=== PATIENT | female | born 1955 | race Caucasian/White ===

== ENCOUNTER 2017-06-16 13:30 | Outpatient (RCR) | payer OTHER, SELFPAY | END 2017-06-16 23:59 | LOC: PT.CARL 13:30 | PROVIDERS: Referring Provider Internal Medicine Adolescent Medicine; Visit Provider Internal Medicine Adolescent Medicine | DX: M25.552 Pain in left hip (principal) | CPT/HCPCS: 97110; 97162 ==

== ENCOUNTER → 2017-06-16 | Outpatient (CLI) | payer OTHER, SELFPAY | PROVIDERS: Visit Provider Surgery | DX: K26.4 Chronic or unspecified duodenal ulcer with hemorrhage (principal); Z01.812 Encounter for preprocedural laboratory examination | CPT/HCPCS: 36415; 85014; 85018; 93005 ==

== ENCOUNTER 2017-06-24 10:41 | Day surgery (SDC) | payer OTHER, SELFPAY ==
[2017-06-24] VITALS (11 sets, daily range): BP systolic 107–128; BP diastolic 36–76; PULSE 57–78; RESP 16–20; TEMP 36.4–36.6; O2SAT 93–100; BMI 37.5
--- NOTE | 2017-06-24 12:45 | HMH.SCOPE ---
- Procedure: Date: 06/24/17 Procedure Performed:: Esophagogastroduodenoscopy with biopsy Indications:: This is a 61-year-old female who was diagnosed with a complex duodenal ulcer with hemorrhage in March 2017. She remains on proton pump inhibition, as well as Carafate and has been without symptoms. Performing Provider:: Edward Michael MD Referring Provider:: Dr. Antunez Sedation:: Ideation with 11 mg of Versed and 200 mcg of fentanyl Procedure:: After informed consent was obtained, the patient was taken to the endoscopy suite. IV sedation ensued after she was transferred to the left lateral decubitus position. The gastroscope was advanced. The stomach was entered. Patchy gastritis was noted. An antral biopsy was obtained. The pylorus was intubated. The site of prior complex duodenal ulcer was essentially healed with some scarring noted. A biopsy was obtained and the gastroscope was carefully removed. Findings:: Ulcer essentially healed Specimens:: Antral biopsy Biopsy of duodenal ulcer site Recommendations:: Continue current medical therapy Follow-up in 1-2 weeks with regard to pathology Complications:: No immediate Estimated blood obtained (mL): 1
== END 2017-06-24 13:50 | disposition home or self-care (01) ==
PROVIDERS: Family Provider Internal Medicine Adolescent Medicine; PCP Internal Medicine Adolescent Medicine; Visit Provider Surgery
PROC: 0DJ08ZZ Inspection of Upper Intestinal Tract, Via Natural or Artificial Opening Endoscopic (ICD-10-PCS; CPT 43235; principal; 2017-06-24 11:30)
DX: Z09 Encounter for follow-up examination after completed treatment for conditions other than malignant neoplasm (principal); Z87.11 Personal history of peptic ulcer disease; K29.70 Gastritis, unspecified, without bleeding
CPT/HCPCS: 43239; 99152

== ENCOUNTER 2017-06-30 14:30 | Outpatient (RCR) | payer OTHER, SELFPAY | END 2017-06-30 23:59 | LOC: PT 14:30 | PROVIDERS: Family Provider Internal Medicine Adolescent Medicine; Visit Provider Internal Medicine Adolescent Medicine | DX: M25.552 Pain in left hip (principal) | CPT/HCPCS: 97110 ==

== ENCOUNTER → 2018-07-27 08:24 | Outpatient (CLI) | payer MEDICARE, OTHER, SELFPAY ==
[2018-07-27 13:59] LABS: Basophils % 0.6 % (0.1-2.0); Eosinophils # 0.2 K/mm3 (0.0-0.4); Eosinophils % 3.1 % (0.1-12.0); Hematocrit 49.7 % (37.0-47.0); Hemoglobin 16.4 g/dL (12.2-16.2); Lymphocytes # 2.1 K/mm3 (0.7-4.5); Lymphocytes % 30.6 % (10-50); Mean Corpuscular HGB Conc 33.1 g/dL (31.8-35.4); Mean Corpuscular Hemoglobin 29.3 pg (27.0-31.2); Mean Corpuscular Volume 88.7 fl (81-99); Mean Platelet Volume 10.3 fl (7.4-10.4); Monocytes # 0.4 K/mm3 (0.1-1.0); Neutrophils % 59.6 % (37.0-80.0); Platelet Count 307 K/mm3 (142-424); Red Blood Count 5.61 M/mm3 (4.20-5.40); Red Cell Distribution Width 15.1 % (11.5-17.5); White Blood Count 6.8 K/mm3 (4.8-10.8)
[2018-07-27 14:53] LABS: Alanine Aminotransferase 29 U/L (12-78); Albumin Level 3.8 gm/dL (3.4-5.0); Albumin/Globulin Ratio 0.8 (1.1-1.8); Alkaline Phosphatase 62 U/L (46-116); Anion Gap 16.3 mEq/L (5-15); Aspartate Amino Transferase 19 U/L (15-37); Bilirubin,Total 0.7 mg/dL (0.2-1.0); Blood Urea Nitrogen 15 mg/dL (7-18); Calcium 9.5 mg/dL (8.5-10.1); Carbon Dioxide 26 mmol/L (21.0-32.0); Chloride 102 mmol/L (98-107); Chol/HDL Ratio 4.2 (1-3.5); Cholesterol 188 mg/dL (140-200); Creatinine,Serum 0.67 mg/dL (0.55-1.02); Estimated Glomerular Filt Rate 88 ml/min (>60); Free Thyroxine Index 2.2 ug/dL (5.93-13.13); GFR (African American) 107 ML/MIN (>60); Globulin 4.5 gm/dl (1.3-3.2); Glucose 134 mg/dL (74-106); HDL Cholesterol 45 mg/dL (29-89); LDL Cholesterol 116 mg/dL (0-130); Potassium 4.3 mmoL/L (3.5-5.1); Sodium 140 mmol/L (136-145); T4 (Thyroxine) 7.7 ug/dl (4.7-13.3); Thyroid Stimulating Hormone 7.62 uIU/ml (0.358-3.740); Total Protein,Serum 8.3 gm/dL (6.4-8.2); Triglycerides 135 mg/dL (30-200); Triiodothryronine (T3) Uptake 29 % (31-39); VLDL Cholesterol 27 mg/dL (0-40)
[2018-07-28 09:32] LABS: Vitamin D 25 Hydroxy 26.1 ng/mL (30.0-100.0)
[2018-07-28 11:52] LABS: Vitamin B12 456 pg/mL (232-1245)
== END ==
PROVIDERS: PCP Internal Medicine Adolescent Medicine; Visit Provider Internal Medicine Adolescent Medicine
DX: I48.0 Paroxysmal atrial fibrillation (principal); Z79.899 Other long term (current) drug therapy
CPT/HCPCS: 36415; 80053; 80061; 82607; 82652; 84436; 84443; 84479; 85025

== ENCOUNTER 2018-08-15 11:00 | Outpatient (RCR) | payer MEDICARE, OTHER, SELFPAY ==
--- NOTE | 2018-08-01 14:53 | HMH.OTOPEV ---
OT Inpatient Evaluation Rehab OT Outpatient Eval Start: 08/01/18 14:35 Freq: Status: Active Protocol: Document 08/01/18 14:36 TFRY (Rec: 08/01/18 14:53 TFRY [id number]) Electronically Signed By Valencia White, OT 08/01/18 14:36 Outpatient Therapy Subjective History Subjective History This is a 63 year old right handed female referred to occupational therapy for bilateral carpal tunnel syndrome. Patient reports that this has been ongoing for years. Chief Complaint Pain Symptom Type Burning Tingling Symptoms Relieved By Brace/Support Symptoms Aggravated By Physical Activity Prior Functional Limitations None Current Functional Limitations None Symptom Description Intermittent Level of pain today (0-10) 2 Pain scale - at its best (0-10) 0 Pain scale - at its worst (0-10) 7 Wrist/Hand Eval Wrist Range of Motion Bilateral Wrist ROM Reason Not Measured Within Functional Limits Wrist Manual Muscle Testing Right Wrist Extension Strength Grade 5 Normal Wrist Flexion Strength Grade 5 Normal Wrist Radial Deviation Strength Grade 5 Normal Wrist Ulnar Deviation Strength Grade 5 Normal Left Wrist Extension Strength Grade 5 Normal Wrist Flexion Strength Grade 5 Normal Wrist Radial Deviation Strength Grade 5 Normal Wrist Ulnar Deviation Strength Grade 5 Normal Appliance Installer/Pinch Strength Right Appliance Installer Strength Measurement (lbs) 74 Palmar Pinch (3-point) Ability Normal Performance Palmar Pinch (3-point) Strength 4 Measurement (lbs) Tip Pinch (2-point) Ability Normal Performance Tip Pinch (2-point) Strength Measurement 0 (lbs) Lateral Pinch Ability Normal Performance Lateral Pinch Strength Measurement (lbs) 10 Left Appliance Installer Strength Measurement (lbs) 50 Palmar Pinch (3-point) Ability Normal Performance Palmar Pinch (3-point) Strength 5 Measurement (lbs) Tip Pinch (2-point) Ability Normal Performance Tip Pinch (2-point) Strength Measurement 1 (lbs) Lateral Pinch Ability Normal Performance Lateral Pinch Strength Measurement (lbs) 8 Special Tests Wrist Phalen Test Positive Left Positive Right Wrist Tinel Test Negative Left Negative Right OT Outpatient Assessment Impairments Problems/Impairments Impaired Strength Subjective C/O Pain Prognosis Rehab Potential Fair Clinical Impression Consistent with Diagnosis
== END 2018-09-07 13:01 | disposition home or self-care (01) ==
LOC: OT 11:00
PROVIDERS: Visit Provider Internal Medicine Adolescent Medicine
DX: G56.03 Carpal tunnel syndrome, bilateral upper limbs (principal)
CPT/HCPCS: 97033; 97110; 97165

== ENCOUNTER → 2018-10-10 08:06 | Outpatient (CLI) | payer MEDICARE, OTHER, SELFPAY ==
[2018-10-10 15:29] LABS: Alanine Aminotransferase 32 U/L (12-78); Albumin Level 3.8 gm/dL (3.4-5.0); Alkaline Phosphatase 53 U/L (46-116); Anion Gap 13.3 mEq/L (5-15); Aspartate Amino Transferase 17 U/L (15-37); Bilirubin,Total 0.6 mg/dL (0.2-1.0); Blood Urea Nitrogen 6 mg/dL (7-18); Carbon Dioxide 27 mmol/L (21.0-32.0); Chloride 104 mmol/L (98-107); Chol/HDL Ratio 4.8 (1-3.5); Cholesterol 177 mg/dL (140-200); Creatinine,Serum 0.62 mg/dL (0.55-1.02); Estimated Glomerular Filt Rate 97 ml/min (>60); GFR (African American) 117 ML/MIN (>60); Glucose 115 mg/dL (74-106); HDL Cholesterol 37 mg/dL (29-89); LDL Cholesterol 105 mg/dL (0-130); Potassium 4.3 mmoL/L (3.5-5.1); Sodium 140 mmol/L (136-145); Total Protein,Serum 7.8 gm/dL (6.4-8.2); Triglycerides 175 mg/dL (30-200); VLDL Cholesterol 35 mg/dL (0-40)
== END ==
PROVIDERS: PCP Internal Medicine Adolescent Medicine; Visit Provider Nurse Practitioner Family
DX: E78.2 Mixed hyperlipidemia (principal)
CPT/HCPCS: 36415; 80053; 80061

== ENCOUNTER → 2019-03-07 10:01 | Outpatient (CLI) | payer MEDICARE, OTHER, SELFPAY ==
[2019-03-07 11:41] LABS: Blood Urea Nitrogen 16 mg/dL (7-18); Creatinine,Serum 0.63 mg/dL (0.55-1.02); Estimated Glomerular Filt Rate 95 ml/min (>60); GFR (African American) 115 ML/MIN (>60)
--- NOTE | 2019-03-07 11:50 | CT_ITS ---
PROCEDURE: CT ABDOMEN PELVIS WO/W CON CLINICAL INDICATION: ABD SWELLING,LT LOWER QUAD Left-sided abdominal pain and swelling COMPARISON: No exams were available for comparison TECHNIQUE: IV Contrast: 75ML OPTIRAY 350 Oral Contrast none Axial images obtained with sagittal and coronal reformats. All CT scans at the facility use one or more dose reduction, viz: automated exposure control, ma/kV adjustment per patient size (including targeted exams where dose is matched to indication, i.e. head), or iterative reconstruction technique. Images are obtained without and with contrast FINDINGS: There are mild atelectatic or fibrotic changes in the lung bases. The coronary artery calcification noted. There are multiple gallstones within a mildly distended gallbladder. There is a small area of decreased attenuation within the right hepatic lobe adjacent to the gallbladder somewhat ill-defined at approximately 2 cm. This is of questionable etiology and could be due to some focal fatty infiltration. There is some minimal nodularity of the anterior gallbladder wall. No biliary dilatation. The spleen, adrenal glands, and pancreas have an unremarkable appearance. No renal or ureteral calculi. There are small parapelvic left renal cyst. There is a tiny umbilical hernia containing fat. No intestinal obstruction or free air. No evidence of appendicitis. There are post hysterectomy changes with artifact from a right hip prosthesis obscuring fine detail in the pelvis. There diverticulosis of the descending and sigmoid colon but no evidence of diverticulitis. No acute bony anomaly. IMPRESSION: 1. Multiple gallstones with mildly distended gallbladder and minimal nodularity of the anterior gallbladder wall. Consider gallbladder ultrasound for further evaluation. 2. Colonic diverticulosis. No evidence of diverticulitis. 3. Other nonacute findings as described above Dictated by: Tom Carter MD 03/08/2019 07:19 Electronically signed by Tom Carter MD in [facility] 03/08/2019 07:19
== END ==
PROVIDERS: PCP Internal Medicine Adolescent Medicine; Visit Provider Internal Medicine Adolescent Medicine
DX: R19.04 Left lower quadrant abdominal swelling, mass and lump (principal)
CPT/HCPCS: 36415; 74178; 82565; 84520; Q9967

== ENCOUNTER → 2019-03-21 10:51 | Outpatient (POV) | payer MEDICARE, OTHER, SELFPAY | PROVIDERS: Visit Provider Dermatology | DX: Z00.00 Encounter for general adult medical examination without abnormal findings (principal) ==

== ENCOUNTER → 2019-04-03 08:56 | Outpatient (CLI) | payer MEDICARE, OTHER, SELFPAY ==
--- NOTE | 2019-04-03 09:00 | US_ITS ---
PROCEDURE: US GALLBLADDER CLINICAL INDICATION: gallstones Abdominal pain and swelling, abnormal CT scan COMPARISON: CT ABDOMEN PELVIS WO/W CON from 03/07/2019 FINDINGS: Pancreas: Unremarkable/Not well seen Liver: Unremarkable. There is appropriate direction of blood flow within a non dilated portal vein. Right kidney: Unremarkable appearing. No hydronephrosis. Gallbladder: There are multiple gallstones present. No gallbladder wall thickening, pericholecystic fluid, or biliary dilatation is evident. IMPRESSION: Cholelithiasis Dictated by: Tom Carter MD 04/03/2019 12:14 Electronically signed by Tom Carter MD in [facility] 04/03/2019 12:14
== END ==
PROVIDERS: PCP Internal Medicine Adolescent Medicine; Visit Provider Surgery
DX: K82.9 Disease of gallbladder, unspecified (principal)
CPT/HCPCS: 76705

== ENCOUNTER → 2019-08-01 14:32 | Outpatient (CLI) | payer MEDICARE, OTHER, SELFPAY ==
--- NOTE | 2019-08-01 14:44 | XR_ITS ---
PROCEDURE: XR HUMERUS RT CLINICAL INDICATION: RT ARM PAIN COMPARISON: No exams were available for comparison FINDINGS: No fracture or dislocation. No lytic or blastic change. There is normal mineralization. The joint spaces are well-preserved. No significant degenerative/arthritic changes. No erosive changes evident. Other findings:None. IMPRESSION: No acute findings. Dictated by: Tom Carter MD 08/01/2019 15:17 Electronically signed by Tom Carter MD in [facility] 08/01/2019 15:17
--- NOTE | 2019-08-01 14:45 | XR_ITS ---
PROCEDURE: XR SHOULDER RT MIN 2V CLINICAL INDICATION: RT ARM PAIN Right shoulder pain COMPARISON: No exams were available for comparison FINDINGS: Osteoarthritic changes are present at the acromioclavicular joint. There is mild subacromial stenosis. No fracture or dislocation. IMPRESSION: Mild acromioclavicular arthropathy Dictated by: Tom Carter MD 08/01/2019 15:16 Electronically signed by Tom Carter MD in [facility] 08/01/2019 15:16
== END ==
PROVIDERS: PCP Internal Medicine Adolescent Medicine; Visit Provider Internal Medicine Adolescent Medicine
DX: M79.601 Pain in right arm (principal)
CPT/HCPCS: 73030; 73060

== ENCOUNTER → 2019-08-15 08:49 | Outpatient (CLI) | payer MEDICARE, OTHER, SELFPAY ==
[2019-08-15 13:30] LABS: Basophils # 0.1 K/mm3 (0-0.2); Basophils % 1.2 % (0.1-2.0); Eosinophils # 0.3 K/mm3 (0.0-0.4); Eosinophils % 3.8 % (0.1-12.0); Hematocrit 44.8 % (37.0-47.0); Hemoglobin 14.6 g/dL (12.2-16.2); Lymphocytes # 2.2 K/mm3 (0.7-4.5); Lymphocytes % 27.9 % (10-50); Mean Corpuscular HGB Conc 32.6 g/dL (31.8-35.4); Mean Corpuscular Volume 92.1 fl (81-99); Monocytes # 0.4 K/mm3 (0.1-1.0); Monocytes % 5.1 % (1.7-9.3); Neutrophils # 4.9 K/mm3 (1.8-7.8); Platelet Count 295 K/mm3 (142-424); Red Blood Count 4.87 M/mm3 (4.20-5.40); White Blood Count 7.8 K/mm3 (4.8-10.8)
[2019-08-15 13:47] LABS: Hemoglobin A1C 5.8 % (4.0-6.0)
[2019-08-15 13:51] LABS: Alanine Aminotransferase 25 U/L (12-78); Albumin Level 4.1 g/dl (3.5-5.0); Albumin/Globulin Ratio 1.2 (1.1-1.8); Alkaline Phosphatase 66 U/L (38-126); Anion Gap 10.3 mEq/L (5-15); Aspartate Amino Transferase 26 U/L (14-36); Bilirubin,Total 0.3 mg/dl (0.2-1.3); Blood Urea Nitrogen 16 mg/dl (7-17); Calcium 9.6 mg/dl (8.4-10.2); Carbon Dioxide 28 mmol/L (22.0-30.0); Chloride 102 mmol/L (98-107); Chol/HDL Ratio 4.6 (1-3.5); Cholesterol 180 mg/dl (140-200); Estimated Glomerular Filt Rate 123 ml/min (>60); GFR (African American) 149 ML/MIN (>60); Globulin 3.3 g/dL (1.3-3.2); Glucose 107 mg/dl (74-100); HDL Cholesterol 39 mg/dl (40-60); Potassium 4.3 mmoL/L (3.5-5.1); Sodium 136 mmol/L (136-145); Total Protein,Serum 7.4 g/dl (6.3-8.2); Triglycerides 177 mg/dl (30-150); VLDL Cholesterol 35 mg/dL (0-40)
[2019-08-15 14:01] LABS: Direct LDL Cholesterol 117.23 mg/dL (100-129)
== END ==
PROVIDERS: Visit Provider Internal Medicine Adolescent Medicine
DX: E78.2 Mixed hyperlipidemia (principal); E03.9 Hypothyroidism, unspecified; R73.9 Hyperglycemia, unspecified
CPT/HCPCS: 36415; 80053; 80061; 83036; 84443; 85025

== ENCOUNTER 2020-02-06 11:00 | Outpatient (RCR) | payer MEDICARE, OTHER, SELFPAY | END 2020-02-20 12:16 | disposition home or self-care (01) | LOC: OT 11:00 | PROVIDERS: PCP Internal Medicine Adolescent Medicine; Visit Provider Internal Medicine Adolescent Medicine | DX: M25.511 Pain in right shoulder (principal) | CPT/HCPCS: 97014; 97033; 97035; 97110; 97530; G0283 ==

== ENCOUNTER → 2020-05-01 07:59 | Outpatient (CLI) | payer MEDICARE, OTHER, SELFPAY ==
--- NOTE | 2020-05-01 | CA_ITS ---
APPROVED REPORT Exam: Pharmacologic Technologist: Gisell Price Ht: 5 ft 8 in Wt: 257 lbs BSA: 2.27 m2 HR: 74 bpm BP: 126/67 mmHg Indications: Dyspnea on Exertion, Medical History Medications: Sotalol,,,,, Pantoprazole,,,,, DilTiazem,,,,, Apixaban,,,,, Stress Test Details Test: LEXISCAN HR Resting HR: 88 bpm Max Heart Rate (APMHR): 154 bpm Max HR Achieved: 115 bpm Target HR (85% APMHR): 130 bpm % of APMHR: 74 Recovery HR: 99 bpm BP Resting BP: 126.0/67.0 mmHg Max BP: 152.0/82.0 mmHg Recovery BP: 152.0/82.0 mmHg ECG Clinical Exercise duration: 04:00 min Highest Stage Achieved: Exercise capacity: 1.0 METs Stress ECG Conclusion Resting EKG: Atrial fibrillation, controlled ventricular rate, NS ST-T abnormalities, cannot rule out old septal AK. Symptoms: Brief shortness of air, mild malaise. Arrhythmias/Ectopy: Atrial fibrillation throughout ST-T Changes: Exaggeration of baseline ST-T abnormalities. Conclusion: Non-diagnostic Lexiscan stress. Myoview images reported separately. Electronically signed by : Jose Guadalupe Plasencia, 05/02/2020 11:30:43
--- NOTE | 2020-05-01 08:02 | NM_ITS ---
APPROVED REPORT Exam: Nuclear Stress Test Indication: Chest pain, SOB, Former tobacco use, Family history Patient Location: Outpatient Stress Tech: Gisell Price NM Tech:Kiana Caldreon, ARRT, RT (R)(N) Ht: 5 ft 7 in Wt: 250 lbs Bra Size: 42C HR: 74 bpm BP: 126/67 mmHg BSA: 2.22 m2 BMI: 39.1 History: Chest pain, SOB, Former tobacco use, Family history Procedure: Patient received a 0.4 mg of intravenous Lexiscan, resting heart rate 74 bpm, resting blood pressure 126/67 mmHg, with Lexiscan maximum heart rate achived was 86 bpm which is Less than 85 % of the maximum predicted heart rate and blood pressure was 142/75 mmHg. With Lexiscan, patient denied any complaint of chest pain. Electrocardiogram Resting electrocardiogram showed atrial fibrillation, with Lexiscan there is less than 1.[address] segment depression noted from the baseline EKG. The EKG portion of the Lexiscan is nondiagnostic. Cardiac Stress and Resting SPECT Images: Cardiac Stress and Resting SPECT images were obtained using technetium 99m Myoview 30.4 mCi stress and 9.97 mCi at rest. Gated SPECT for analysis of segmental wall motion and calculation of the ejection fraction also done. Prone images were also obtained. Cardiac stress prone images show uniform myocardial activity without segmental perfusion abnormality, computer derived ejection fraction is 55% with no regional wall motion abnormality, right ventricle is mildly enlarged with normal contractility. Conclusion: 1. The EKG portion of the Lexiscan is nondiagnostic 2. No scintigraphic evidence of reversible ischemia seen, computer derived ejection fraction is 55% with no regional wall motion abnormality, right ventricle is mildly enlarged with normal contractility. 3. Normal Lexiscan Myoview study. Electronically signed by : Jose Guadalupe Plasencia, 05/02/2020 11:34:05
--- NOTE | 2020-05-01 10:22 | HMH.ITSHM ---
Current Home Medications as stated by this patient Lillian Muhammad or territory representative. []DILTIAZEM APIXABAN SOTALOL PANTOPRAZOLE
== END ==
PROVIDERS: PCP Internal Medicine Adolescent Medicine; Visit Provider Internal Medicine Adolescent Medicine
DX: R06.09 Other forms of dyspnea (principal)
CPT/HCPCS: 78452; 93017; A9502; J2785

== ENCOUNTER 2020-06-07 11:10 | Emergency (ER) | payer MEDICARE, OTHER, SELFPAY ==
[2020-06-07 11:15] VITALS: BP 124/61; PULSE 54; RESP 14; TEMP 36.5; O2SAT 99; BMI 39.1
--- NOTE | 2020-06-07 11:26 | HMH.EDUTC ---
[facility] [place] Clinical Impression: Exposure to COVID-19 virus Disposition: Home, Self-Care Condition on Discharge: Good Instructions: Preventing the Spread of Coronavirus Discharge Instructions Referrals: Wally Antunez MD [Primary Care Provider] - Time of Disposition: 11:31 Medical Decision Making - Ricki Inquiry Pt receiving controlled substance: No [facility] [place] - General Stated complaint: Covid test Time Seen by Provider: 06/07/20 11:26 - History of Present Illness Provider Complaint: Patient requesting COVID test. She denies symptoms or exposure. Treatments prior to arrival: none - Related Data Home Medications Medication Instructions Recorded Confirmed Pantoprazole Sodium [Protonix 40mg 40 mg PO DAILY 06/23/17 03/28/19 tablet] Sotalol HCl [Sotalol] 120 mg PO BID 06/23/17 03/28/19 dilTIAZem HCL [Cartia Xt] 240 mg PO DAILY 06/23/17 03/28/19 apixaban 5 mg tablet 5 mg PO BID 07/05/18 03/28/19 Allergies Allergy/AdvReac Type Severity Reaction Status Date / Time No Known Drug Allergies Allergy Unknown -- Verified 03/28/19 13:37 [facility] History - Hepatitis A Screen Attestation statement:: This patient has been screened for Hepatitis A risk factors. I have reviewed the patient's past medical history: Yes Medical History: Reports:: Atrial Fibrillation, Lung Disease, Palpitations Denies:: Diabetes Mellitus Type 1, Diabetes Mellitus Type 2, Internal Pacemaker, Seizures Laterality Cases: Right: Arthroscopy Hip, Total Hip Replacement Other Surgeries: Yes: Diagnostic Lap, Hysterectomy-Total. No: Pacemaker - Social History Smoking Status: Former smoker #Yrs smoked (if former smoker): 20 Alcohol Intake: never Substance Use Type: denies use Occupational Status: employed Family Hx:: Coronary Artery Disease, Heart Attack Comment: Father- of [place] at 68. Mother-Lived to be 99 with Palpitations ROS Obtained: Yes All systems reviewed & no additional complaints Physical Exam - General General appearance: alert, in no apparent distress - Head Head exam: atraumatic, normocephalic, normal inspection - Eye Eye exam: Present: normal appearance, PERRL, EOMI - ENT ENT exam: Present: normal exam, normal oropharynx, mucous membranes moist, TM's normal bilaterally, normal external ear exam - Neck Neck exam: Present: normal inspection, full ROM, trachea midline. Absent: meningismus, lymphadenopathy - Chest Chest inspection: Present: normal inspection, symmetric chest wall rise. Absent: tenderness - Respiratory Respiratory exam: Present: normal lung sounds bilaterally. Absent: respiratory distress - Cardiovascular Cardiovascular exam: Present: regular rate, normal rhythm. Absent: JVD - Abdominal Exam Abdominal exam: Present: soft, normal bowel sounds. Absent: distention, tenderness, guarding - Extremities Exam Extremities exam: Present: normal inspection, full ROM, normal capillary refill. Absent: calf tenderness - Back Exam Back exam: Present: normal inspection. Absent: tenderness - Neurological Exam Neurological exam: Present: alert, oriented X3 - Psychiatric Psychiatric exam: Present: normal affect, normal mood - Skin Skin exam: Present: warm, dry, intact, normal color - Lymphatic Lymphatic Findings: no adenopathy
[2020-06-07 11:28] VITALS: BP 124/61; PULSE 54; RESP 14; TEMP 36.5; O2SAT 99
[2020-06-08 10:48] LABS: Covid-19 Nasal PCR Sendout P&C NEGATIVE
== END 2020-06-07 11:30 | disposition home or self-care (01) ==
PROVIDERS: Emergency Provider Physician Assistant; PCP Internal Medicine Adolescent Medicine
DX: Z20.828 Contact with and (suspected) exposure to other viral communicable diseases (principal); I48.0 Paroxysmal atrial fibrillation; Z87.891 Personal history of nicotine dependence; R00.2 Palpitations; Z96.641 Presence of right artificial hip joint
CPT/HCPCS: G0463; 99201; U0004

== ENCOUNTER 2020-07-29 13:00 | Outpatient (RCR) | payer MEDICARE, OTHER, SELFPAY ==
--- NOTE | 2020-06-24 15:30 | HMH.PTOPEV ---
PT Outpatient Evaluation Rehab PT Outpatient Evaluation Start: 06/24/20 13:36 Freq: Status: Active Protocol: Document 06/24/20 13:36 SIRENAX (Rec: 06/24/20 14:04 [email or web address] [id number]) Electronically Signed By Kasi Murray, DK 06/24/20 13:36 Outpatient Therapy Subjective History Subjective History Pt. is a 64 year old female who presents to Outpatient PT clinic w/ complaints of chronic and constant RLE lateral thigh/ft. numbness/tingling/burning of insidious onset since having my total hip surgery 15 years ago. Pt. also complains of walking w/ a limp and balance deficits. Pt. reports she purchased a rollator and uses it to ambulate longer distances. Pt. denies having recent diagnostic imaging nor injections for current pathology. Pt. reports symptoms worsen w/ stair negotiation, ambulating long distances and standing from a seated position. Pt. notes symptom relief w/ swimming in a heated pool. Pt. 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 Current medications include Cardizem, Sotalol, and Eliquis . PMH includes R RUSS, mini-CVA 2017, Hysterectomy, Cardiomegaly, and A-fib. Chief Complaint Pain,Paresthesia,Weakness Symptom Type Burning,Numbness,Tingling Symptoms Relieved By Heat Symptoms Aggravated By Standing,Twisting,Walking Prior Functional Limitations None Current Functional Limitations Standing,Recreation Activity, Walking,Stairs,Balance Symptom Description Constant and Continuous Level of pain today (0-10) 2 Pain scale - at its best (0-10) 1 Pain scale - at its worst (0-10) 8 Lumbopelvic Eval Posture Thoracic Spine Posture Standing Position Neutral Lumbar Spine Posture Standing Position Neutral Assistive device Assistive Devices None / NA Gait Observation General Gait Pattern Observation Antalgic Gait,Decrease Weight
== END 2020-07-29 14:00 | disposition home or self-care (01) ==
LOC: PT.CARL 13:00
PROVIDERS: PCP Internal Medicine Adolescent Medicine; Visit Provider Internal Medicine Adolescent Medicine
DX: M25.552 Pain in left hip (principal); M46.98 Unspecified inflammatory spondylopathy, sacral and sacrococcygeal region
CPT/HCPCS: 97110; 97140; 97163

== ENCOUNTER → 2020-12-09 09:23 | Outpatient (CLI) | payer MEDICARE, OTHER, SELFPAY ==
--- NOTE | 2020-12-09 09:25 | CA_ITS ---
APPROVED REPORT EXAM: Comprehensive 2D, Doppler, and color-flow Echocardiogram Oil Rig Roughneck: LAYTON Briceño, RVS Ht: 5 ft 6 in Wt: 252lbs BSA: 2.21 HR: 102 bpm BP: 118/72 mmHg Rhythm: Atrial Fibrillation Indications: SOA, HX-TIA'S, A-FIB Echo Enhancing Agent Comments: Poor acoustics due to body habitus 2D Dimensions LVDd 4.73 cm F: 3.9 - 5.3 LVEF (Visual) 58.10 % LVDs 3.28 cm F: 2.2 - 3.5 LA Volume 83.80 mL Left Atrium 4.08 cm F: 2.7 - 3.8 LA Volume Index [id number] mL/m2 (M/F) 16-34 LVOT 1.96 cm (M/F) 1.5-2.5 M-Mode Dimensions RVDd 2.89 cm (0.9-2.6) LA Diam 3.54 cm (1.9-4.0) LVDd 4.71 cm (3.5-5.7) Ao Diam 2.55 cm (2.0-3.7) LVDs 3.15 cm (3.5-5.7) IVSd 0.91 cm (0.6-1.1) PWd 1.03 cm (0.6-1.1) EF (Teich) 61.70% EPSs 0.46 cm FS 33.10% EDV (Teich) 102.90 mL TAPSE 1.52 (<1.7) ESV (Teich) 39.40 mL LV Diastology E Decel Time 140.00 (160-240 msec) E/A Ratio 1.33 MED E' 13.30 (< 7 cm/sec) MED A' 5.40 cm/s E'/MED E' Ratio 9.18 (>14) LAT E' 11.80 (<10 cm/sec) LAT A' 4.70 cm/s E/LAT E' Ratio 10.35 (>14) Aortic Valve LVOT Max 105.00 (70-110 cm/s) LVOT VTI 18.84 cm AoV Peak Bonilla. 177.00 (50-130 cm/s) AO Peak GR. 12.70 mmHg AO Mean GR. 7.00 (<5 mmHg) AO VTI 35.53 (18-25 cm) SOLIS (VTI) 1.60 (2.5-4.5 cm2) Mitral Valve MV E Max Bonilla. 122.00 (40-130 cm/s) MV A Velocity 92.00 (40-130 cm/s) E/A Ratio 1.33 MV Decel. Time 140.00 (160-240 ms) MV PHT 41.00 ms Pulmonary Valve PV Peak Velocity 81.00 (50-150 cm/s) Tricuspid Valve TR P. Velocity 174.00 cm/s RAP Estimate 10.00 mmHg RVSP 22.10 mmHg Left Ventricle Left atrium is mildly enlarged, left ventricle is normal size, mild concentric left ventricular hypertrophy, visually estimated ejection fraction 55% with no regional wall motion abnormality, diastolic parameters are inconclusive. Right Ventricle Right atrium and right ventricle are normal size and contractility. Aortic Valve Aortic valve is minimally thickened and fibrosed, there is no aortic stenosis or aortic insufficiency. Mitral Valve Mitral valve is grossly normal, there is trace mitral regurgitation. Tricuspid Valve Tricuspid grossly normal, there is trace tricuspid regurgitation, tricuspid regurgitation jet velocity is inadequate for calculation of the right ventricular systolic pressure. Pulmonic Valve Pulmonic valve is poorly visualized. Great Vessels Aortic root is normal size. Pericardium No significant pericardial effusion noted. Conclusion 1. Mildly enlarged left atrium, normal left ventricular size, mild concentric left ventricular hypertrophy, visually estimated ejection fraction 55% with no regional wall motion abnormality, diastolic parameters are inconclusive. 2. Thickened and calcified aortic valve without Doppler evidence of aortic stenosis or aortic insufficiency 3. Trace mitral and tricuspid regurgitation. 4. No significant pericardial effusion noted. Electronically signed by : Jose Guadalupe Plasencia, 12/09/2020 22:08:36
== END ==
PROVIDERS: PCP Internal Medicine Adolescent Medicine; Visit Provider Nurse Practitioner Family
DX: G45.9 Transient cerebral ischemic attack, unspecified (principal); I48.20 Chronic atrial fibrillation, unspecified; R00.2 Palpitations; R06.00 Dyspnea, unspecified
CPT/HCPCS: 93306

== ENCOUNTER → 2021-01-06 07:06 | Outpatient (CLI) | payer MEDICARE, OTHER, SELFPAY ==
--- NOTE | 2021-01-06 07:19 | XR_ITS ---
CLINICAL INDICATION: amiodarone therapy COMPARISON: CT CTAC CTA-CHEST from 03/19/2017 CR CXR1 CHEST-PORTABLE from 03/22/2017 CR CXR1 CHEST-PORTABLE from 04/01/2017 CR CXR2 XR chest AP from 02/20/2018 TECHNIQUE: PA and lateral views of the chest FINDINGS: The heart size and pulmonary vasculature are within normal limits. Mildly increased interstitial markings are noted in the bilateral lower lobes. The lungs are otherwise clear without focal consolidation, pleural effusion, or pneumothorax. Degenerative changes of the visualized thoracic spine are noted. Vascular calcification is noted. IMPRESSION: Mildly increased interstitial markings in the bilateral lower lobes. No lobar consolidation or pleural effusions. Dictated by: Savanna Alves 01/06/2021 09:01 Savanna Alves in [place] 01/06/2021 09:01
[2021-01-06 08:35] LABS: Basophils # 0.1 K/mm3 (0-0.2); Basophils % 1.3 % (0.1-2.0); Eosinophils # 0.3 K/mm3 (0.0-0.4); Eosinophils % 3.7 % (0.1-12.0); Hematocrit 44.6 % (37.0-47.0); Hemoglobin 14.9 g/dL (12.2-16.2); Lymphocytes # 2.6 K/mm3 (0.7-4.5); Lymphocytes % 30.9 % (10-50); Mean Corpuscular HGB Conc 33.4 g/dL (31.8-35.4); Mean Corpuscular Hemoglobin 30.2 pg (27.0-31.2); Mean Corpuscular Volume 90.3 fl (81-99); Monocytes # 0.5 K/mm3 (0.1-1.0); Monocytes % 5.6 % (1.7-9.3); Neutrophils # 4.9 K/mm3 (1.8-7.8); Neutrophils % 58.6 % (37.0-80.0); Platelet Count 307 K/mm3 (142-424); Red Blood Count 4.94 M/mm3 (4.20-5.40); Red Cell Distribution Width 14.8 % (11.5-17.5); White Blood Count 8.3 K/mm3 (4.8-10.8)
[2021-01-06 09:11] LABS: Alanine Aminotransferase 36 U/L (12-78); Albumin Level 4.2 g/dl (3.5-5.0); Albumin/Globulin Ratio 1.3 (1.1-1.8); Alkaline Phosphatase 62 U/L (38-126); Anion Gap 13.3 mEq/L (5-15); Aspartate Amino Transferase 37 U/L (14-36); Bilirubin,Direct 0.5 mg/dl (0.0-0.4); Bilirubin,Total 0.5 mg/dl (0.2-1.3); Blood Urea Nitrogen 11 mg/dl (7-17); Carbon Dioxide 25 mmol/L (22.0-30.0); Chloride 106 mmol/L (98-107); Chol/HDL Ratio 4.7 (1-3.5); Cholesterol 182 mg/dl (140-200); Estimated Glomerular Filt Rate 123 ml/min (>60); GFR (African American) 149 ML/MIN (>60); Globulin 3.2 g/dL (1.3-3.2); Glucose 111 mg/dl (74-100); HDL Cholesterol 39 mg/dl (40-60); Potassium 4.3 mmoL/L (3.5-5.1); Sodium 140 mmol/L (136-145); Total Protein,Serum 7.4 g/dl (6.3-8.2); Triglycerides 156 mg/dl (30-150); VLDL Cholesterol 31 mg/dL (0-40)
[2021-01-06 09:23] LABS: Direct LDL Cholesterol 114.43 mg/dL (100-129)
[2021-01-06 09:28] LABS: Free Thyroxine Index 2.5 ug/dL (5.93-13.13); T4 (Thyroxine) 8.2 ug/dl (5.53-11.0); Triiodothryronine (T3) Uptake 30 % (23.5-40.5)
[2021-01-06 09:42] LABS: Thyroid Stimulating Hormone 7.01 uIU/mL (0.465-4.68)
== END ==
PROVIDERS: Visit Provider Physician Assistant
DX: I48.20 Chronic atrial fibrillation, unspecified (principal); Z79.899 Other long term (current) drug therapy; R06.02 Shortness of breath
CPT/HCPCS: 36415; 71046; 80053; 80061; 80076; 84436; 84443; 84479; 85025

== ENCOUNTER → 2021-01-23 12:48 | Outpatient (CLI) | payer MEDICARE, OTHER, SELFPAY | PROVIDERS: Visit Provider Internal Medicine Cardiovascular Disease | DX: Z20.822 Contact with and (suspected) exposure to COVID-19 (principal) | CPT/HCPCS: U0003 ==

== ENCOUNTER 2021-02-28 07:47 | Day surgery (SDC) | payer MEDICARE, OTHER, SELFPAY ==
[2021-02-28 08:01] VITALS: BMI 39.9
[2021-02-28 08:34] VITALS: BP 145/90; PULSE 72; PULSE 76; RESP 18; TEMP 36.7; O2SAT 96
--- NOTE | 2021-02-28 08:47 | P.PN_ITS ---
[facility] Anesthesia Checklist - Patient Identification Patient Identification: Arm Band - Structural Data Admitted From: Home Planned Operative Procedure/s: Cardioversion Consent for Planned Operative Procedure(s) Verified: Yes Verified Documents: Surgical Consent, History and Physical - NPO Status Verified Time NPO: 00:00 - Additional verifications Anesthesia Reactions: No - Airway Assessment C-Spine Mobility Assessed: Yes (mp2) TMJ Mobility Assessed: Yes Dentition: Good Dentition - Neurological Assessment Level of Consciousness: Awake, Alert - Anesthesia Plan Anesthesia Risk discussed: Yes Anesthesia Plan: Verified ASA Class: III Anesthesia Type: MAC [facility] History I have reviewed the patient's past medical history: Yes Medical History: Reports:: Atrial Fibrillation, Lung Disease, Palpitations Denies:: Cancer, Diabetes Mellitus Type 1, Diabetes Mellitus Type 2, Internal Pacemaker, MRSA, Seizures *Have you ever received a pneumonia vaccine?: Yes *Have you received a flu vaccine this season?: Yes Anesthesia experience/problems:: nac Laterality Cases: Right: Arthroscopy Hip, Total Hip Replacement Other Surgeries: Yes: Diagnostic Lap, Hysterectomy-Total. No: Pacemaker Amputation: No Fractures: No - *Social History Smoking Status: Former smoker #Yrs smoked (if former smoker): 20 Alcohol Intake: never Substance Use Type: denies use *Occupational Status:: employed Housing: house Household Members: none *Travel in the last 8 weeks: None Family Hx:: Coronary Artery Disease, Heart Attack
[2021-02-28 08:48] VITALS: BP 126/80; PULSE 53; RESP 18; O2SAT 93
[2021-02-28 08:55] VITALS: BP 111/64; PULSE 50; RESP 16; O2SAT 99
--- NOTE | 2021-02-28 09:06 | P.PCN_ITS ---
[facility] Cardioversion Date: 02/28/21 Provider:: ELIJAH Chadwick Procedure Performed:: Electrical cardioversion Diagnosis:: Atrial fibrillation Procedure Summary:: Patient was brought to the cardiac Fabricating Machine Operator as an outpatient. After informed co nsent was obtained, anesthesia provided sedation and patient received a single 200 J synchronized shock converting her from atrial fibrillation to normal sinus rhythm. Patient tolerated the procedure well with no complications. She will continue amiodarone and Eliquis as directed. Follow-up in our office in 1 week. Complications:: None Conculsion:: Successful electrical cardioversion from atrial fibrillation to normal sinus rhythm.
[2021-02-28 09:31] VITALS: BP 107/66; PULSE 51; RESP 20; O2SAT 99
== END 2021-02-28 10:00 | disposition home or self-care (01) ==
LOC: CATHLAB 07:50
PROVIDERS: PCP Internal Medicine Adolescent Medicine; Visit Provider Internal Medicine Cardiovascular Disease
PROC: 5A2204Z Restoration of Cardiac Rhythm, Single (ICD-10-PCS; principal; 2021-02-28 08:00)
DX: I48.0 Paroxysmal atrial fibrillation (principal)
CPT/HCPCS: 92960

== ENCOUNTER → 2021-03-21 08:31 | Outpatient (CLI) | payer SELFPAY ==
--- NOTE | 2021-03-21 08:31 | CT_ITS ---
PROCEDURE: CT HEART W CALCIUM SCORE CLINICAL HISTORY: screening COMPARISON: No exams were available for comparison TECHNIQUE: Axial images obtained with sagittal and coronal reformats. All CT scans at the facility use one or more dose reduction, viz: automated exposure control, ma/kV adjustment per patient size (including targeted exams where dose is matched to indication, i.e. head), or iterative reconstruction technique. FINDINGS: Coronary artery calcium score is 25. Mild calcific plaque burden with moderate cardiovascular disease risk. Mild atelectatic changes are present in the lung bases. There are mild degenerative changes in the thoracic IMPRESSION: Mild calcific plaque burden with moderate cardiovascular disease risk Dictated by: Tom Carter MD 03/21/2021 16:02 Tom Carter MD in [place] 03/21/2021 16:02
== END ==
PROVIDERS: PCP Internal Medicine Adolescent Medicine; Visit Provider Internal Medicine Cardiovascular Disease
DX: Z13.6 Encounter for screening for cardiovascular disorders (principal)
CPT/HCPCS: 75571

== ENCOUNTER → 2021-05-28 17:58 | Outpatient (CLI) | payer MEDICARE, OTHER, SELFPAY ==
[2021-05-28 19:12] LABS: Basophils # 0.1 K/mm3 (0-0.2); Basophils % 0.8 % (0.1-2.0); Eosinophils # 0.3 K/mm3 (0.0-0.4); Eosinophils % 3.9 % (0.1-12.0); Hemoglobin 15.8 g/dL (12.2-16.2); Lymphocytes % 27.9 % (10-50); Mean Corpuscular HGB Conc 32.1 g/dL (31.8-35.4); Mean Corpuscular Hemoglobin 30.8 pg (27.0-31.2); Mean Corpuscular Volume 95.9 fl (81-99); Mean Platelet Volume 11.7 fl (7.4-10.4); Monocytes # 0.5 K/mm3 (0.1-1.0); Monocytes % 6.5 % (1.7-9.3); Neutrophils # 4.4 K/mm3 (1.8-7.8); Neutrophils % 60.8 % (37.0-80.0); Platelet Count 259 K/mm3 (142-424); Red Blood Count 5.12 M/mm3 (4.20-5.40); Red Cell Distribution Width 14.6 % (11.5-17.5); White Blood Count 7.2 K/mm3 (4.8-10.8)
[2021-05-28 19:39] LABS: Hemoglobin A1C 5.5 % (4.0-6.0)
[2021-05-28 20:10] LABS: Alanine Aminotransferase 42 U/L (12-78); Albumin Level 4.3 g/dl (3.5-5.0); Albumin/Globulin Ratio 1.3 (1.1-1.8); Alkaline Phosphatase 56 U/L (38-126); Anion Gap 9.5 mEq/L (5-15); Aspartate Amino Transferase 52 U/L (14-36); Bilirubin,Total 0.5 mg/dl (0.2-1.3); Blood Urea Nitrogen 17 mg/dl (7-17); Calcium 9.2 mg/dl (8.4-10.2); Carbon Dioxide 28 mmol/L (22.0-30.0); Chloride 105 mmol/L (98-107); Estimated Glomerular Filt Rate 100 ml/min (>60); GFR (African American) 121 ML/MIN (>60); Globulin 3.3 g/dL (1.3-3.2); Glucose 97 mg/dl (74-100); Potassium 4.5 mmoL/L (3.5-5.1); Sodium 138 mmol/L (136-145); Total Protein,Serum 7.6 g/dl (6.3-8.2)
[2021-05-28 21:48] LABS: 25-OH Vitamin D, Total 21.6 ng/mL (30-100)
== END ==
PROVIDERS: Visit Provider Nurse Practitioner Family
DX: E03.9 Hypothyroidism, unspecified (principal); E55.9 Vitamin D deficiency, unspecified; R73.9 Hyperglycemia, unspecified
CPT/HCPCS: 80053; 82306; 83036; 84443; 85025

== ENCOUNTER 2021-09-18 14:03 | Emergency (ER) | payer MEDICARE, OTHER, SELFPAY ==
[2021-09-18 14:03] VITALS: BP 145/91; PULSE 96; RESP 18; TEMP 36.7; O2SAT 97; BMI 39.5
--- NOTE | 2021-09-18 14:16 | PC.NURSE ---
ED MD at
--- NOTE | 2021-09-18 14:42 | HMH.EDGENADL ---
ED Disposition Clinical Impression: Epistaxis Disposition: Home, Self-Care Condition on Discharge: Good Instructions: Nosebleed Referrals: Wally Antunez MD [Primary Care Provider] - - Critical Care Critical Care Time: No Attestation: On 09/18/21, the high probability of a clinically significant, sudden or life threatening deterioration of the following system(s) required my full and direct attention, intervention and personal management. The time I documented below is in addition to time spent performing reported procedures but includes the following listed in this critical care notation. Medical Decision Making - Medical Records Medical records reviewed: Yes: I reviewed the patient's medical records. - Ricki Inquiry Pt receiving controlled substance: No Vital Signs: 09/18/21 14:03 Temperature 98.0 F Temperature Source Oral Pulse Rate [Right Radial] 96 H Respiratory Rate 18 Blood Pressure [Right Arm] 145/91 H Blood Pressure Mean [Right Arm] 109 Blood Pressure Source [Right Arm] Automatic Cuff Blood Pressure Position [Right Arm] Sitting 02 Sat by Pulse Oximetry 97 Oxygen Delivery Method Room Air Orders (Tests/Meds): ED MEDICATIONS Generic Name Dose Route Start Last Admin Trade Name Freq PRN Reason Stop Dose Admin Silver Nitrate 1 each 09/18/21 14:30 Silver Nitrate Applicator TP 09/18/21 14:31 ONCE ONE Discontinued Medications Generic Name Dose Route Start Last Admin Trade Name Freq PRN Reason Stop Dose Admin Oxymetazoline HCl 1 ml 09/18/21 14:30 Oxymetazoline Nasal [place] 0.05% 15ml NS 09/18/21 14:31 ONCE ONE Medical Decision Narrative: rt nare septum bleed cuterized with silver nitrate stick, good result General Adult HPI - General Stated complaint: nose bleed Time Seen by Provider: 09/18/21 14:42 Limitations: No Limitations - History of Present Illness HPI narrative: rt sided nosebleed, eloquis Onset (ago): minute(s) Radiation: non-radiation Severity: moderate Consistency: now resolved Relieving factors: none Exacerbating factors: none Associated symptoms: denies other symptoms - Related Data Home Medications Medication Instructions Recorded Confirmed apixaban 5 mg tablet 5 mg PO BID 07/05/18 07/28/21 metoprolol succinate 50 mg 100 mg PO DAILY tab 07/28/21 tablet,extended release 24 hr Allergies Allergy/AdvReac Type Severity Reaction Status Date / Time No Known Drug Allergies Allergy Unknown -- Verified 07/28/21 09:38 [facility] History - Hepatitis A Screen Attestation statement:: This patient has been screened for Hepatitis A risk factors. Medical History: Reports:: Atrial Fibrillation, Lung Disease, Palpitations Denies:: Cancer, Diabetes Mellitus Type 1, Diabetes Mellitus Type 2, Internal Pacemaker, MRSA, Seizures Laterality Cases: Right: Arthroscopy Hip, Total Hip Replacement Other Surgeries: Yes: Diagnostic Lap, Hysterectomy-Total. No: Pacemaker Amputation: No Fractures: No - Social History Smoking Status: Former smoker #Yrs smoked (if former smoker): 20 Alcohol Intake: never Substance Use Type: denies use Occupational Status: employed Housing: house Household Members: none Family Hx:: Coronary Artery Disease, Heart Attack Comment: Father- of [place] at 68. Mother-Lived to be 99 with Palpitations ROS Obtained: Yes All systems reviewed & no additional complaints Physical Exam - General General appearance: alert, in no apparent distress - Head Head exam: atraumatic, normocephalic - Eye Eye exam: Present: normal appearance, PERRL, EOMI - ENT ENT exam: Present: normal exam, normal oropharynx, mucous membranes moist, other (rt nare small anterior septum bleed) - Neck Neck exam: Present: normal inspection, full ROM, trachea midline - Respiratory Respiratory exam: Absent: respiratory distress, wheezes, stridor - Cardiovascular Cardiovascular exam: Present: regular rate, normal rhythm. A
[2021-09-18 15:01] VITALS: BP 125/87; PULSE 84; RESP 16; O2SAT 97
--- NOTE | 2021-09-18 15:06 | PC.NURSE ---
pt reports feeling better, no further bleeding noted from nose. Pt swallowed states she did not feel like blood was going down her throat. Notified ER
[2021-09-18 15:15] VITALS: BP 125/87; PULSE 84; RESP 16; TEMP 36.7; O2SAT 97
== END 2021-09-18 15:15 | disposition home or self-care (01) ==
PROVIDERS: Emergency Provider Internal Medicine Adolescent Medicine; PCP Internal Medicine Adolescent Medicine
DX: R04.0 Epistaxis (principal); I48.0 Paroxysmal atrial fibrillation; R00.2 Palpitations; Z96.641 Presence of right artificial hip joint; Z87.891 Personal history of nicotine dependence
CPT/HCPCS: 30901; 99283

== ENCOUNTER 2022-11-06 10:26 | Day surgery (SDC) | payer MEDICARE, OTHER, SELFPAY ==
[2022-11-06] VITALS (12 sets, daily range): BP systolic 131–167; BP diastolic 76–94; PULSE 87–125; RESP 17–20; TEMP 36.1–36.6; O2SAT 96–99; BMI 40.7
--- NOTE | 2022-11-06 10:55 | EXP.UTC ---
Discharge Plan Disposition Patient Disposition: Still a Patient Condition: Fair Prescriptions Prescriptions: No Action Eliquis 5 mg tablet 5 mg PO BID metoprolol succinate 100 mg tablet extended release 24 hr 100 mg PO DAILY Label Comments: TAKE 1 TABLET 1 TIME EACH DAY levalbuterol HCl 1.25 mg/3 mL solution for nebulization inhalation amoxicillin 875 mg tablet 875 mg PO BID 10 Days Qty: 20 0RF Referrals Follow up/Referrals: Wally Antunez MD [Primary Care Provider] - See instructions Clinical Impressions Clinical Impression: Dysphagia Discharge ED Provider: Yuan Rothman [facility] HPI General Stated complaint: Abd bloating Time Seen by Provider: 11/06/22 10:55 History of Present Illness Provider Complaint: She states that since yesterday evening she has been unable to swallow anything. She states that she is unable to swallow her own saliva, so she has had to spit it out. She denies any sore throat. Related Data Home Medications Medication Instructions Recorded Confirmed apixaban 5 mg tablet (Eliquis) 5 mg PO BID 07/05/18 05/06/22 levalbuterol HCl 1.25 mg/3 mL ml inhalation 05/06/22 05/06/22 solution for nebulization metoprolol succinate 100 mg 100 mg PO DAILY 05/06/22 05/06/22 tablet,extended release 24 hr Previous Rx's Medication Instructions Recorded amoxicillin 875 mg tablet 875 mg PO BID 10 days #20 tabs 05/06/22 Allergies Allergy/AdvReac Type Severity Reaction Status Date / Time No Known Drug Allergies Allergy Unknown -- Verified 05/06/22 10:36 [facility] Disclaimer: The information contained in this section may have been updated after the patient was seen, as this information can be updated by other users. Medical History Abnormal electrocardiography Chronic a-fib Fatigue HANNAH (obstructive sleep apnea) Restless sleeper SOB (shortness of breath) Surgical History History of hip replacement History of hysterectomy Family History Father Heart attack Social History Smoking Status: Former smoker pack-years: 20 alcohol intake: never substance use type: denies use current occupational status: employed Travel in the last 8 weeks: Inside the [place] household members: none housing: house current occupational exposures/hazards: Yes caffeine: Yes ROS Obtained: Yes All systems reviewed & no additional complaints except as documented Constitutional Constitutional: Denies chills and Denies fever(s) Eyes Eyes: Denies eye discharge ENT Ears, Nose, Mouth, and Throat: Denies dizziness, Denies otalgia and Denies sore throat Cardiovascular Cardiovascular: Denies chest pain Respiratory Respiratory: Denies shortness of breath, Denies chest congestion, Denies cough, Denies stridor and Denies wheezing Gastrointestinal Gastrointestingal: Reports as per HPI, nausea and vomiting Musculoskeletal Musculoskeletal: Reports system reviewed and no additional complaints, except as documented and Denies arthralgias Integumentary/Breasts Skin/Breast: Denies rash Neurologic Neurologic: Denies dizziness and Denies paresthesias Allergic/Immunologic Allergic/Immunologic: Denies wheezing Physical Exam General General appearance: alert and in no apparent distress Head Head exam: atraumatic, normocephalic and normal inspection Eye Eye exam: Present normal appearance, PERRL and EOMI ENT ENT exam: Present normal exam, normal oropharynx, mucous membranes moist, TM's normal bilaterally and normal external ear exam Neck Neck exam: Present normal inspection, full ROM and trachea midline; Absent meningismus or lymphadenopathy Chest Chest inspection: Present normal inspection and symmetric chest wall rise; Absent tenderness Respiratory Respiratory
--- NOTE | 2022-11-06 10:59 | PC.NURSE ---
pt ambulatory to restroom without complications
--- NOTE | 2022-11-06 10:59 | PC.NURSE ---
Pt ambulatory to ED room 11 from [facility] with PJ Bradford without complications. Pt hooked to monitor, call arcos within reach. no other needs at this time
--- NOTE | 2022-11-06 11:00 | PC.NURSE ---
PATIENT SENT TO ER PER Lizeth SESAY APRN FOR FURTHER EVALUATION. REPORT GIVEN TO Alta PEREZ RN
--- NOTE | 2022-11-06 11:02 | PC.NURSE ---
UA sent to lab
[2022-11-06 11:09] LABS: Microscopic, Urine URINE MICROSCOPIC (MICROSCOPIC)
[2022-11-06 11:28] LABS: Appearance,Urine CLEAR (Clear); Blood, Urine 1+ (Negative); Color,Urine YELLOW (Yellow); Glucose,Urine (UA) Negative (Negative); Ketones,Urine Negative (Negative); Leukocyte Esterase,Urine Negative (Negative); Nitrate,Urine Negative (Negative); Protein,Urine 1+ (Negative); Specific Gravity, Urine >= 1.030 (1.005-1.030)
[2022-11-06 11:34] LABS: Bilirubin,Urine Negative (Negative)
--- NOTE | 2022-11-06 11:40 | PC.NURSE ---
Rounded on patient; pt reports no needs at this time. call arcos within reach
--- NOTE | 2022-11-06 11:53 | PC.NURSE ---
pt resting on ED stretcher at this time; she has TV remote; call arcos within reach
--- NOTE | 2022-11-06 12:05 | PC.NURSE ---
Dr. Hernandez at [facility] for pt eval
[2022-11-06 12:06] LABS: Bacteria,Urine Trace /lpf; Mucus,Urine Trace /lpf; RBC,Urine Occasional #/hpf (0-3); Squamous Epithelial Cell,Urine Occasional #/hpf (0-5)
--- NOTE | 2022-11-06 12:10 | PC.NURSE ---
Dr. Wyman at [facility] for consult
--- NOTE | 2022-11-06 12:16 | HMH.EDGENADL ---
Discharge Plan Disposition Patient Disposition: Still a Patient Condition: Fair Prescriptions Prescriptions: No Action Eliquis 5 mg tablet 5 mg PO BID metoprolol succinate 100 mg tablet extended release 24 hr 100 mg PO DAILY Label Comments: TAKE 1 TABLET 1 TIME EACH DAY levalbuterol HCl 1.25 mg/3 mL solution for nebulization inhalation amoxicillin 875 mg tablet 875 mg PO BID 10 Days Qty: 20 0RF Referrals Follow up/Referrals: Wally Antunez MD [Primary Care Provider] - See instructions Clinical Impressions Clinical Impression: Food impaction of esophagus Instructions Patient Instructions: DI for Acute Abdominal Pain Discharge ED Provider: Em Hernandez General Adult HPI General Chief complaint: Abdominal Pain Stated complaint: Abd bloating Time Seen by Provider: 11/06/22 10:55 Mode of Arrival: Ambulatory Source of Information: Patient Limitations: No Limitations Description of Symptoms (Recalled from ER Triage Doc. by RN): presents via pov from [facility] [[email or web address] with complaints of generalized abdominal bloating and Esophageal discomfort after eating steak yesterday. Last BM yesterday and today, normal consistancy. +passing flatus and frequent burping. Hx of endoscopy x2 for similar episodes, acid reflux vs food bolus History of Present Illness HPI narrative: 67-year-old female with a history of known gastroesophageal reflux disease and chronic esophageal inflammation with a known history of esophageal food bolus impaction treated in the past presents today with similar symptoms. States she was eating steak yesterday evening and since that time has been able to swallow anything including her own secretions and fluids. Still states she has a sensation in the lower esophagus location of discomfort. No significant abdominal pain. Related Data Home Medications Medication Instructions Recorded Confirmed apixaban 5 mg tablet (Eliquis) 5 mg PO BID 07/05/18 05/06/22 levalbuterol HCl 1.25 mg/3 mL ml inhalation 05/06/22 05/06/22 solution for nebulization metoprolol succinate 100 mg 100 mg PO DAILY 05/06/22 05/06/22 tablet,extended release 24 hr Previous Rx's Medication Instructions Recorded amoxicillin 875 mg tablet 875 mg PO BID 10 days #20 tabs 05/06/22 Allergies Allergy/AdvReac Type Severity Reaction Status Date / Time No Known Drug Allergies Allergy Unknown -- Verified 05/06/22 10:36 [facility] Disclaimer: The information contained in this section may have been updated after the patient was seen, as this information can be updated by other users. Medical History Abnormal electrocardiography Chronic a-fib Fatigue HANNAH (obstructive sleep apnea) Restless sleeper SOB (shortness of breath) Surgical History History of hip replacement History of hysterectomy Family History Father Heart attack Social History Smoking Status: Never smoker alcohol intake: never substance use type: denies use current occupational status: employed Travel in the last 8 weeks: [place] the [place] household members: none housing: house current occupational exposures/hazards: Yes caffeine: Yes ROS Obtained: Yes All systems reviewed & no additional complaints except as documented Physical Exam General General appearance: alert and in no apparent distress Respiratory Respiratory exam: Present other Cardiovascular Cardiovascular exam: Present regular rate and normal rhythm Neurological Exam Neurological exam: Present alert and oriented X3 Medical Decision Making Ricki Inquiry Pt receiving controlled substance: No Vital Signs: 11/06/22 10:40 11/06/22 11:09 Temperature 97.9 F 97.7 F Temperature Source Oral Oral Pulse Rate [Left Brachial] 110 H 87
--- NOTE | 2022-11-06 12:20 | PC.NURSE ---
covid swab sent to lab
[2022-11-06 12:25] LABS: Coronavirus 19, PCR Not Detected (NotDetected); Influenza A, PCR Not Detected (NotDetected); Influenza B, PCR Not Detected (NotDetected)
--- NOTE | 2022-11-06 12:25 | EXP.GEN.HP ---
HPI HPI HPI: Patient is a 67-year-old female from [place] with history of TIA, atrial fibrillation, obstructive sleep apnea. She is on Eliquis. She has previously required upper endoscopy for esophageal obstruction secondary to food impaction by Dr. He [place] [address] Michael in 2016. She also has history of duodenal ulcer in 2017 which was diagnosed after she underwent laparoscopic hysterectomy (for small focus of endometrial cancer) which was followed by exploratory laparotomy for postoperative bleeding complicated by atrial fibrillation at which time she was anticoagulated and then developed GI bleeding. At that time Dr. Michael had performed upper endoscopy which revealed bleeding duodenal ulcer requiring intervention for hemostatic control. She has previously had cholecystectomy by Dr. Michael. She states that yesterday evening approximately 7 PM she was eating a steak sandwich. She has felt something lodged and has been unable to swallow even her secretions. Denies significant chest pain. Interestingly, the patient states that she had undergone cardiac CT scan with IV contrast yesterday and she does describe some bloating and decreased bowel movements subsequently. Patient does not list any proton pump inhibitors or H2 blockers on her medications. [facility] Disclaimer: The information contained in this section may have been updated after the patient was seen, as this information can be updated by other users. Medical History Abnormal electrocardiography Chronic a-fib Fatigue HANNAH (obstructive sleep apnea) Restless sleeper SOB (shortness of breath) Surgical History History of hip replacement History of hysterectomy Family History Father Heart attack Social History Smoking Status: Never smoker alcohol intake: never substance use type: denies use current occupational status: employed Travel in the last 8 weeks: [place] the [place] household members: none housing: house current occupational exposures/hazards: Yes caffeine: Yes Review of Systems ENT Ears, Nose, Mouth, and Throat: Denies dizziness *Neurologic Neurologic: Denies dizziness and Denies paresthesias Meds Home Medications and Allergies Home Medications Medication Instructions Recorded Confirmed Type apixaban 5 mg tablet (Eliquis) 5 mg PO BID 07/05/18 05/06/22 History amoxicillin 875 mg tablet 875 mg PO BID 10 days #20 tabs 05/06/22 05/06/22 Rx levalbuterol HCl 1.25 mg/3 mL ml inhalation 05/06/22 05/06/22 History solution for nebulization metoprolol succinate 100 mg 100 mg PO DAILY 05/06/22 05/06/22 History tablet,extended release 24 hr New Prescriptions to Start Prescriptions: Allergies Allergy/AdvReac Type Severity Reaction Status Date / Time No Known Drug Allergies Allergy Unknown -- Verified 05/06/22 10:36 Exam Data for Last 24 hours Vital signs and Labs for Last 24 Hours: Temp Pulse Resp BP Pulse Ox 97.7 F 87 18 158/83 H 98 11/06/22 11:09 11/06/22 11:09 11/06/22 11:09 11/06/22 11:09 11/06/22 11:09 Laboratory Results - last 24 hr 11/06/22 11:01: Urine Color Yellow, Urine Appearance Clear, Urine pH 6.0, Ur Specific [place] >= 1.030, Urine Protein 1+, Urine Glucose (UA) Negative, Urine Ketones Negative, Urine Blood 1+, Urine Nitrate Negative, Urine Bilirubin Negative, Urine Urobilinogen 1.0, Ur Leukocyte Esterase Negative, Urine RBC Occasional, Urine WBC 3-5, Ur Squamous Epith Cells Occasional, Urine Bacteria Trace, Urine Mucus Trace I & O for Last 24 hours: Intake & Output 11/04/22 11/05/22 11/06/22 11/07/22 11:59 11:59 11:59 11:59 Weight 260 lb Constitutional Constitutional: no acute distress *Routine HEENT Exam Head: Present normocephalic Eye: Present EOMI ENT
--- NOTE | 2022-11-06 12:42 | PC.NURSE ---
OR RNs here for pt.
--- NOTE | 2022-11-06 12:53 | PC.NURSE ---
Endo team at bedside. Anesthesia at bedside. Informed consent obtained, however MD signature needed. Pt assisted into gown. Pre-op checklist completed and sent with Endo team. Pt made contact with brother who will be responsible for patient post-procedure. Contact information listed within Pre-Op checklist. Pt assisted to procedural area with RN x 2 via stretcher. 20g PIV inserted to RFA.
--- NOTE | 2022-11-06 13:14 | HMH.SCOPE ---
Procedure: Date: 11/06/22 Patient Date of :: 1955 Procedure Performed:: Esophagogastroduodenoscopy with retrieval of foreign body food impaction. Indications:: Patient is a 67-year-old female from [place] with history of TIA, atrial fibrillation, obstructive sleep apnea.? She is on Eliquis.? She previously had history of esophageal obstruction secondary to food impaction requiring endoscopy in 2010 and in 2016. She also has a prior history of duodenal ulcer. She states that yesterday evening approximately 7 PM she was eating a steak sandwich.? She has felt something lodged and has been unable to swallow even her secretions.? Denies significant chest pain.? Interestingly, the patient states that she had undergone cardiac CT scan with IV contrast yesterday and she does describe some bloating and decreased bowel movements subsequently.? ? Patient does not list any proton pump inhibitors or H2 blockers on her medications. Performing Provider:: Tom Wyman MD Referring Provider:: . Sedation:: MAC sedation Procedure:: Patient history was obtained and appropriate physical examination was performed. Patient's medications and allergies were reviewed. Informed consent was obtained after explaining the benefits, alternatives, and risks of the procedure including, but not limited to, bleeding, perforation, missed lesions, and adverse reaction to anesthesia medications. Patient was transported to endoscopy procedure room. Patient was connected to monitoring devices. Throughout the procedure the patient's blood pressure, pulse, and oxygen saturations were monitored continuously. Patient identification and planned procedure were verified by the staff. Patient was positioned in lateral decubitus position. Adequate intravenous sedation was achieved. Olympus endoscope was inserted via the oropharynx. Esophagus was cannulated. There were some salivary secretions and in the distal esophagus particulate food matter was encountered. Some of this was able to be suctioned free. There was noted to be some loose food material but evidence of a food bolus in the distal esophagus at approximately 40 cm from the incisors. The endoscope was withdrawn. The [employer] eSuction device was secured to the endoscope. It was then advanced to the distal esophagus at the site of the obstruction. Using the snare and suction the food bolus was able to be grasped and the endoscope was withdrawn with the food bolus. Endoscope was reinserted with the E suction device. There appeared to be no evidence of any residual food bolus obstruction but the endoscope with the device could not be advanced into the stomach. Endoscope was withdrawn and the E suction device removed. Endoscope was reinserted. It was easily advanced into the stomach. Retroflexion revealed moderate hiatal hernia. There was some mild duodenitis and some diffuse gastropathy. Stomach was desufflated and the endoscope was withdrawn. Findings:: Esophageal obstruction distal esophagus Foreign body removed using into therapeutic device Moderate hiatal hernia Diffuse nonerosive gastropathy Mild duodenitis Recommendations:: Liquid diet for 24 hours. Recommend proton pump inhibitors. Complications:: None immediately apparent Estimated blood obtained (mL): 1
--- NOTE | 2022-11-06 14:54 | SUR.PHASEII ---
Pt is still waiting on her ride to pick her up.
== END 2022-11-06 15:30 | disposition home or self-care (01) ==
LOC: UTC 10:30 → ER 10:57 → SDC 14:26
PROVIDERS: Emergency Provider Student in an Organized Health Care Education/Training Program; PCP Internal Medicine Adolescent Medicine; Visit Provider Surgery
PROC: 0DJ08ZZ Inspection of Upper Intestinal Tract, Via Natural or Artificial Opening Endoscopic (ICD-10-PCS; CPT 43235; principal; 2022-11-06 12:45)
DX: T18.128A Food in esophagus causing other injury, initial encounter (principal); Z79.899 Other long term (current) drug therapy
CPT/HCPCS: 43247; 81001; 87635; 87636; C9803; U0003; U0005

== ENCOUNTER 2023-05-19 14:28 | Emergency (ER) | payer MEDICARE, OTHER, SELFPAY ==
[2023-05-19 14:54] VITALS: BP 134/59; PULSE 77; RESP 20; TEMP 36.8; O2SAT 99; BMI 40.7
--- NOTE | 2023-05-19 14:55 | HMH.EDGENADL ---
Discharge Plan Disposition Patient Disposition: Home, Self-Care Prescriptions Prescriptions: No Action Eliquis 5 mg tablet 5 mg PO BID metoprolol succinate 100 mg tablet extended release 24 hr 100 mg PO DAILY Patient Comments: TAKE 1 TABLET 1 TIME EACH DAY levalbuterol HCl 1.25 mg/3 mL solution for nebulization 3 ml inhalation DAILY levothyroxine 50 mcg tablet 50 mcg PO DAILY Referrals Follow up/Referrals: Wally Antunez MD [Primary Care Provider] - See instructions Activity Restrictions/Add. Instructions Additional Instructions/Restrictions: There is evidence of an anterior septal bleed that was cauterized on today's visit. Please apply Afrin and pressure as discussed if this recurs and return to the emergency department with any ongoing bleeding. Clinical Impressions Clinical Impression: Anterior epistaxis Discharge ED Provider: Em Hernandez General Adult HPI General Stated complaint: reoccurrent nose bleed Time Seen by Provider: 05/19/23 14:41 History of Present Illness HPI narrative: Patient is a 67-year-old on Eliquis here with right anterior nosebleed that has become hemostatic prior to arrival today. This is happened to her once in the past before where she had to have cautery at that time. She states she has no ongoing bleeding at the moment. She states this been intermittently happening for the last week and a half she does not feel weak and states she has only lost a very small amount of blood. Related Data Home Medications Medication Instructions Recorded Confirmed apixaban 5 mg tablet (Eliquis) 5 mg PO BID Blood thinner 07/05/18 11/06/22 levalbuterol HCl 1.25 mg/3 mL 3 ml inhalation DAILY soa 05/06/22 11/06/22 solution for nebulization metoprolol succinate 100 mg 100 mg PO DAILY a fib 05/06/22 11/06/22 tablet,extended release 24 hr levothyroxine 50 mcg tablet 50 mcg PO DAILY hypothyroid 11/06/22 11/06/22 Allergies Allergy/AdvReac Type Severity Reaction Status Date / Time No Known Drug Allergies Allergy Unknown -- Verified 05/06/22 10:36 [facility] Disclaimer: The information contained in this section may have been updated after the patient was seen, as this information can be updated by other users. Medical History Abnormal electrocardiography Chronic a-fib Fatigue HANNAH (obstructive sleep apnea) Restless sleeper SOB (shortness of breath) Surgical History History of hip replacement History of hysterectomy Family History Father Heart attack Social History Smoking Status: Never smoker alcohol intake: never substance use type: denies use current occupational status: employed Travel in the last 8 weeks: [place] the [place] household members: none housing: house current occupational exposures/hazards: Yes caffeine: Yes ROS Obtained: Yes All systems reviewed & no additional complaints except as documented Physical Exam General General appearance: alert ENT ENT exam: Present other (Right anterior septum friable mucosa with evidence of recent bleed no ongoing hemorrhage in the anterior posterior nose no bleeding down the posterior oropharynx) Respiratory Respiratory exam: Present normal lung sounds bilaterally Cardiovascular Cardiovascular exam: Present regular rate; Absent tachycardia Neurological Exam Neurological exam: Present alert Medical Decision Making Ricki Inquiry Pt receiving controlled substance: No Medical Decision Narrative: Patient is a 67-year-old with hemostatic recent anterior epistaxis in the setting of Eliquis use. Given the fact that I could identify the location of the bleed on the anterior septum I did do silver nitrate cautery with successful resolution of the symptoms. Patient
[2023-05-19 14:59] VITALS: BP 130/62; PULSE 78; RESP 98; TEMP 36.7; O2SAT 99
== END 2023-05-19 15:00 | disposition home or self-care (01) ==
PROVIDERS: Emergency Provider Student in an Organized Health Care Education/Training Program; PCP Internal Medicine Adolescent Medicine
DX: R04.0 Epistaxis (principal); I48.20 Chronic atrial fibrillation, unspecified; Z79.01 Long term (current) use of anticoagulants
CPT/HCPCS: 30903; 99283

== ENCOUNTER 2023-09-06 14:14 | Emergency (ER) | payer MEDICARE, OTHER, SELFPAY ==
[2023-09-06 14:15] VITALS: BP 152/101; PULSE 107; RESP 15; TEMP 36.7; O2SAT 98; BMI 41.0
--- NOTE | 2023-09-06 14:17 | ED_ITS ---
<Statement entered by Radha Nuñez DO - 09/06/23 15:26> I was consulted by the ROMEL, and we discussed the complexity of the problems being addressed. I approved the treatment and management plan for this patient's care in the emergency department, thus performing a substantive portion of the medical decision making. Radha Nuñez DO Discharge Plan Disposition Patient Disposition: Home, Self-Care Condition: Good Prescriptions Prescriptions: No Action metoprolol succinate 50 mg tablet extended release 24 hr 50 mg PO BID Eliquis 5 mg tablet 5 mg PO BID Referrals Follow up/Referrals: Gadiel Rashid MD [Staff Physician] - See instructions Wally Antunez MD [Primary Care Provider] - See instructions Activity Restrictions/Add. Instructions Additional Instructions/Restrictions: Please avoid hidden sodium. I have referred you to Dr. Rashid's group for cardiology evaluation as an outpatient for blood pressure management and workup of peripheral edema. Return to the emergency department or PCP as needed for any change in signs or symptoms or condition. Clinical Impressions Clinical Impression: Hypertension, uncontrolled, Peripheral edema Discharge ED Provider: Radha Nuñez General Adult HPI <ELIJAH Miguel - Last Filed: 09/06/23 16:14> General Chief complaint: Recheck/Abnormal Lab/Rx Stated complaint: swelling in both feet and high BP Time Seen by Provider: 09/06/23 14:17 History of Present Illness HPI narrative: Patient presents from PCPs office for leg swelling and high blood pressure. Patient has a past medical history of chronic atrial fibrillation on Eliquis, obstructive sleep apnea on CPAP, hypertension on metoprolol, previous smoker with history of COPD not on chronic oxygen, morbid obesity, history of TIA. Patient was seen in her PCPs office today for elevated blood pressure and lower extremity swelling. Patient does not follow closely with her provider and last laboratory workup that I am able to review was from 2020. Patient also had an echo that year that reported an ejection fraction of 55%. Patient denies chest pain shortness of breath but does report exercise intolerance and dyspnea with exertion. Patient denies fever chills hemoptysis hematochezia melena nausea vomiting diarrhea. Patient does not follow a heart failure diet. Related Data Home Medications Medication Instructions Recorded Confirmed apixaban 5 mg tablet (Eliquis) 5 mg PO BID Blood thinner 01/15/19 03/18/24 metoprolol succinate 50 mg 50 mg PO BID 09/06/23 09/06/23 tablet,extended release 24 hr Allergies Allergy/AdvReac Type Severity Reaction Status Date / Time No Known Drug Allergies Allergy Unknown -- Verified 09/06/23 10:30 [facility] <ELIJAH Miguel - Last Filed: 09/06/23 16:14> [facility] Disclaimer: The information contained in this section may have been updated after the patient was seen, as this information can be updated by other users. Medical History Restless sleeper Abnormal electrocardiography HANNAH (obstructive sleep apnea) Fatigue SOB (shortness of breath) Chronic a-fib Surgical History History of hysterectomy History of hip replacement Family History Father Heart attack Social History Smoking Status: Former smoker alcohol intake: never substance use type: denies use current occupational status: employed Travel in the last 8 weeks: Inside the [place] household members: none housing: house current occupational exposures/hazards: Yes caffeine: Yes <ELIJAH Miguel - Last Filed: 09/06/23 16:14> ROS Obtained: Yes Systems reviewed as appropriate & no additional complaints except as documented Physical Exam <ELIJAH Miguel - Last Filed: 09/06/23 16:14> General General appearance: alert and in no apparent distress Head Head exam: atraumatic and normal inspection Eye Eye exam: Present normal appearance, PERRL and EOMI ENT ENT exam: Present normal exam, normal oropharynx and mucous membranes moist Neck Neck exam: Present normal inspection and full ROM Chest Chest inspection: Present normal inspection and symmetric chest wall rise Respiratory Respiratory exam: Present normal lung sounds bilaterally; Absent respiratory distress, wheezes, stridor or accessory muscle use Cardiovascular Cardiovascular exam: Present irregular rhythm (Irregularly irregular controlled rate and rhythm without murmurs gallops rubs or thrills. Patient has +2 pitting edema to the level of the knees bilaterally) Abdominal Exam Abdominal exam: Present soft (Obese) and normal bowel sounds; Absent tenderness Extremities Exam Extremities exam: Present normal inspection and full ROM; Absent tenderness Back Exam Back exam: Present normal inspection and full ROM Neurological Exam Neurological exam: Present alert, oriented X3 and CN II-XII intact Psychiatric Psychiatric exam: Present normal affect and normal mood Skin Skin exam: Present warm, dry and intact Medical Decision Making <ELIJAH Miguel - Last Filed: 09/06/23 16:14> Medical Records Medical records reviewed: Yes I reviewed the patient's medical records. Vital Signs: 09/06/23 14:15 09/06/23 15:01 09/06/23 15:30 Temperature 98.0 F Temperature Source Oral Pulse Rate 102 H 81 Pulse Rate [Right] 107 H Respiratory Rate 15 20 20 Blood Pressure 135/99 H 132/90 Blood Pressure [Right Arm] 152/101 H Blood Pressure Mean 111 97 Blood Pressure Mean [Right Arm] 118 Blood Pressure Source Blood Pressure Source [Right Arm] Automatic Cuff 02 Sat by Pulse Oximetry 98 98 99 Oxygen Delivery Method Room Air 09/06/23 16:45 Temperature 97.9 F Temperature Source Pulse Rate 103 H Pulse Rate [Right] Respiratory Rate 15 Blood Pressure 134/77 Blood Pressure [Right Arm] Blood Pressure Mean Blood Pressure Mean [Right Arm] Blood Pressure Source Automatic Cuff Blood Pressure Source [Right Arm] 02 Sat by Pulse Oximetry Oxygen Delivery Method Room Air Lab Data Lab results reviewed: Yes I reviewed the patient's lab results. Lab Results 09/06/23 14:45: WBC 8.8, RBC 5.22, Hgb 16.0, Hct 50.2 H, MCV 96.1, MCH 30.6, MCHC 31.8, RDW 15.1, Plt Count 212, MPV 8.5, Neut % (Auto) 64.7, Lymph % (Auto) 25.3, [place] % (Auto) 6.0, Eos % (Auto) 2.5, Baso % (Auto) 1.6, Neut # (Auto) 5.7, Lymph # (Auto) 2.2, [place] # (Auto) 0.5, Eos # (Auto) 0.2, Baso # (Auto) 0.1, PT 11.9, INR 1.11 H, Sodium 140, Potassium 3.7, Chloride 106, Carbon Dioxide 25, Anion Gap 12.7, BUN 13, Creatinine 0.50 L, Estimated Creat Clear 101, Estimated GFR 122, Est GFR ( Amer) 148, Glucose 111 H, Calcium 9.2, Magnesium 1.8, Total Bilirubin 0.6, AST 55 H, ALT 45, Alkaline Phosphatase 56, Troponin I < 0.01, NT-Pro-B Natriuret Pep 461 H, Total Protein 8.5 H, Albumin 4.5, Globulin 4.0 H, Albumin/Globulin Ratio 1.1, TSH 4.02 09/06/23 15:08: Urine Color Yellow, Urine Appearance Clear, Urine pH 6.0, Ur Specific [place] >= 1.030, Urine Protein Negative, Urine Glucose (UA) Negative, Urine Ketones Negative, Urine Blood 1+, Urine Nitrate Negative, Urine Bilirubin Negative, Urine Urobilinogen 0.2, Ur Leukocyte Esterase Negative, Urine RBC Occasional, Urine WBC None, Ur Squamous Epith Cells 5-10, Urine Bacteria None 09/06/23 14:45 09/06/23 14:45 Orders (Tests/Meds): ED MEDICATIONS Discontinued Medications Generic Name Dose Route Start Last Admin Trade Name Freq PRN Reason Stop Dose Admin Furosemide 40 mg 09/06/23 15:20 09/06/23 16:13 Furosemide 40mg/4ml Vial IV 09/06/23 15:21 40 mg ONCE ONE Administration ORDERS Category Date Time Status Chest XR -- portable [XR chest portable] Stat Exams 09/06/23 14:30 Completed BNP [Brain Natriuretic Peptide] Stat Lab 09/06/23 14:45 Completed CBC w/Auto Diff [Complete Blood Count Auto Diff] Stat Lab 09/06/23 14:45 Completed CMP [Comprehensive Metabolic Panel] Stat Lab 09/06/23 14:45 Completed INR [Prothrombin Time INR] Stat Lab 09/06/23 14:45 Completed Magnesium Stat Lab 09/06/23 14:45 Completed TSH [Thyroid Stimulating Hormone] Stat Lab 09/06/23 14:45 Completed Trop I [Troponin I] Stat Lab 09/06/23 14:45 Completed UA [Urinalysis and Microscopic] Stat Lab 09/06/23 15:08 Completed HEART Score History (anamnesis): Slightly suspicious ECG: Non-specific disturbance Age: >65 years Risk factors: 1-2 risk factors Troponin: </= normal limit HEART Score: 4 Medical Decision Narrative: In summary patient is a 68-year-old female who presents to the emergency department for evaluation of elevated blood pressure and bilateral lower extremity edema. Patient is afebrile and presents with a blood pressure 152/101 with a heart rate of 107 but is irregularly irregular on the monitor system with her known history of atrial fibrillation satting at 98% on room air upon arrival, with a temperature of 98.0. Physical exam is remarkable for bilateral pitting edema +2 to the level of the knees without evidence of cellulitis induration erythema or tenderness. Breath sounds are clear and equal bilaterally to the bases without adventitious sounds.. Differential diagnosis includes venous insufficiency versus renal failure versus CHF exacerbation etc. Initial workup will be conducted with plain film chest x-ray hematologic labs twelve-lead EKG. Initial interventions include 40 of IV Lasix. Initial workup reviewed by me that shows an elevated NT proBNP normal troponin with the remainder of her laboratory investigations nonactionable including slightly low creatinine with normal GFR. Upon repeat evaluation patient's blood pressure has normalized down to 130 systolic with a heart rate of 90 still in atrial fibrillation however.. Given this for discharge home with referral to Dr. Rashid's group for further management and evaluation. Verbalized understanding and agreement. <Radha Nuñez, DO - Last Filed: 09/07/23 15:12> Ricki Inquiry Pt receiving controlled substance: No Vital Signs: 09/06/23 14:15 09/06/23 15:01 09/06/23 15:30 Temperature 98.0 F Temperature Source Oral Pulse Rate 102 H 81 Pulse Rate [Right] 107 H Respiratory Rate 15 20 20 Blood Pressure 135/99 H 132/90 Blood Pressure [Right Arm] 152/101 H Blood Pressure Mean 111 97 Blood Pressure Mean [Right Arm] 118 Blood Pressure Source Blood Pressure Source [Right Arm] Automatic Cuff 02 Sat by Pulse Oximetry 98 98 99 Oxygen Delivery Method Room Air 09/06/23 16:45 Temperature 97.9 F Temperature Source Pulse Rate 103 H Pulse Rate [Right] Respiratory Rate 15 Blood Pressure 134/77 Blood Pressure [Right Arm] Blood Pressure Mean Blood Pressure Mean [Right Arm] Blood Pressure Source Automatic Cuff Blood Pressure Source [Right Arm] 02 Sat by Pulse Oximetry Oxygen Delivery Method Room Air Lab Data Lab Results 09/06/23 14:45: WBC 8.8, RBC 5.22, Hgb 16.0, Hct 50.2 H, MCV 96.1, MCH 30.6, MCHC 31.8, RDW 15.1, Plt Count 212, MPV 8.5, Neut % (Auto) 64.7, Lymph % (Auto) 25.3, [place] % (Auto) 6.0, Eos % (Auto) 2.5, Baso % (Auto) 1.6, Neut # (Auto) 5.7, Lymph # (Auto) 2.2, [place] # (Auto) 0.5, Eos # (Auto) 0.2, Baso # (Auto) 0.1, PT 11.9, INR 1.11 H, Sodium 140, Potassium 3.7, Chloride 106, Carbon Dioxide 25, Anion Gap 12.7, BUN 13, Creatinine 0.50 L, Estimated Creat Clear 101, Estimated GFR 122, Est GFR ( Amer) 148, Glucose 111 H, Calcium 9.2, Magnesium 1.8, Total Bilirubin 0.6, AST 55 H, ALT 45, Alkaline Phosphatase 56, Troponin I < 0.01, NT-Pro-B Natriuret Pep 461 H, Total Protein 8.5 H, Albumin 4.5, Globulin 4.0 H, Albumin/Globulin Ratio 1.1, TSH 4.02 09/06/23 15:08: Urine Color Yellow, Urine Appearance Clear, Urine pH 6.0, Ur Specific [place] >= 1.030, Urine Protein Negative, Urine Glucose (UA) Negative, Urine Ketones Negative, Urine Blood 1+, Urine Nitrate Negative, Urine Bilirubin Negative, Urine Urobilinogen 0.2, Ur Leukocyte Esterase Negative, Urine RBC Occasional, Urine WBC None, Ur Squamous Epith Cells 5-10, Urine Bacteria None Orders (Tests/Meds): ED MEDICATIONS Discontinued Medications Generic Name Dose Route Start Last Admin Trade Name Nicole PRN Reason Stop Dose Admin Furosemide 40 mg 09/06/23 15:20 09/06/23 16:13 Furosemide 40mg/4ml Vial IV 09/06/23 15:21 40 mg ONCE ONE Administration ORDERS Category Date Time Status Chest XR -- portable [XR chest portable] Stat Exams 09/06/23 14:30 Completed BNP [Brain Natriuretic Peptide] Stat Lab 09/06/23 14:45 Completed CBC w/Auto Diff [Complete Blood Count Auto Diff] Stat Lab 09/06/23 14:45 Completed CMP [Comprehensive Metabolic Panel] Stat Lab 09/06/23 14:45 Completed INR [Prothrombin Time INR] Stat Lab 03/18/24 14:45 Completed Magnesium Stat Lab 09/06/23 14:45 Completed TSH [Thyroid Stimulating Hormone] Stat Lab 09/06/23 14:45 Completed Trop I [Troponin I] Stat Lab 09/06/23 14:45 Completed UA [Urinalysis and Microscopic] Stat Lab 09/06/23 15:08 Completed ECG Data Tracing #1: I reviewed this ECG and interpreted as documented below: Atrial fibrillation with a ventricular rate of [address] changes concerning for ischemia. Normal axis. ECG initial impression date: 09/06/23 ECG initial impression time: 14:55 HEART Score HEART Score: 4 Medical Decision Narrative: In summary patient is a [age, sex] who presents to the emergency department for evaluation of [complaint]. Patient is [hemodynamically stable/unstable] upon arrival, [febrile/afebrile]. [Unremarkable physical exam, nonfocal exam versus focal remarkable exam]. Differential diagnosis includes [DDx]. Initial workup will be conducted with [hematologic labs, imaging, respiratory swab, describe workup]. Initial interventions include [crystalloid bolus, medications, p.o. challenge, etc.] initial workup reviewed by me [hematologic labs are remarkable for... Imaging remarkable for... Urinalysis remarkable for]. Upon repeat evaluation [patient had acceptable resolution of symptoms, had persistent pain for which additional interventions were conducted (describe interventions), tolerated p.o., was ambulatory, etc.]. Given this [patient is appropriate for discharge at this time and will be discharged with a prescription for... The case was discussed with hospital medicine regarding management and they will admit the patient their service for continued evaluation at this time... Etc.] Places where you can increase complexity: I informally interpreted the patient's chest x-ray or CT read and is remarkable for... Documenting what the perinatal coordinator shows with rate and rhythm Consideration of test but deferring. Ex: I considered chest x-ray on this patient however given that they have no oxygen requirement and are clear to auscultation all lung garcia will be deferred. Social determinants of health: Given that patient is undomiciled increases complexity. Given that patient has polysubstance abuse compounds all aspects of care Critical Care <Radha Nuñez, DO - Last Filed: 09/07/23 15:12> Critical Care Time Critical Care Time: No
--- NOTE | 2023-09-06 14:30 | XR_ITS ---
FINAL REPORT CLINICAL HISTORY: Acute cough, wheezing FINDINGS: A single portable view of the chest was obtained. There is mild pulmonary vascular congestion and cardiomegaly. There is bronchial wall thickening consistent with bronchitis. The bony thorax is intact. IMPRESSION: Cardiomegaly and mild pulmonary vascular congestion. Bronchitis without pneumonia. Reviewed, Interpreted and Dictated by Tom Bryan III, MD Transcribed by Allyn Ambrocio Authenticated and . [facility]
--- NOTE | 2023-09-06 14:51 | ECG_ITS ---
APPROVED REPORT Exam: Resting ECG HR:85 bpm ECG Measurements Heart Rate 85 AXES QRSd 81 QRS 53 QT 371 T 36 QTc 413 Conclusion ATRIAL FIBRILLATION ABNORMAL RHYTHM ECG UNCONFIRMED REPORT Electronically signed by : Yuan Hernandez, 09/06/2023 22:53:15
[2023-09-06 14:54] LABS: Basophils # 0.1 K/mm3 (0-0.2); Basophils % 1.6 % (0.1-2.0); Eosinophils # 0.2 K/mm3 (0.0-0.4); Eosinophils % 2.5 % (0.1-12.0); Hematocrit 50.2 % (37.0-47.0); Lymphocytes # 2.2 K/mm3 (0.7-4.5); Lymphocytes % 25.3 % (10-50); Mean Corpuscular HGB Conc 31.8 g/dL (31.8-35.4); Mean Corpuscular Hemoglobin 30.6 pg (27.0-31.2); Mean Corpuscular Volume 96.1 fl (81-99); Mean Platelet Volume 8.5 fl (7.4-10.4); Monocytes # 0.5 K/mm3 (0.1-1.0); Neutrophils # 5.7 K/mm3 (1.8-7.8); Neutrophils % 64.7 % (37.0-80.0); Platelet Count 212 K/mm3 (142-424); Red Blood Count 5.22 M/mm3 (4.20-5.40); Red Cell Distribution Width 15.1 % (11.5-17.5); White Blood Count 8.8 K/mm3 (4.8-10.8)
[2023-09-06 15:01] VITALS: BP 135/99; PULSE 102; RESP 20; O2SAT 98
[2023-09-06 15:04] LABS: INR 1.11 (0.9-1.1); Prothrombin Time 11.9 seconds (10.1-12.5)
--- NOTE | 2023-09-06 15:10 | PC.NURSE ---
Rounded on pt. No needs or complaints voiced a this time. Call light placed within reach.
[2023-09-06 15:14] LABS: Albumin Level 4.5 g/dl (3.5-5.0); Albumin/Globulin Ratio 1.1 (1.1-1.8); Alkaline Phosphatase 56 U/L (38-126); Anion Gap 12.7 mEq/L (5-15); Bilirubin,Total 0.6 mg/dl (0.2-1.3); Blood Urea Nitrogen 13 mg/dl (7-17); Calcium 9.2 mg/dl (8.4-10.2); Carbon Dioxide 25 mmol/L (22.0-30.0); Chloride 106 mmol/L (98-107); Creatinine Clearance Estimated 101 mL/min (50-200); Estimated Glomerular Filt Rate 122 ml/min (>60); GFR (African American) 148 ML/MIN (>60); Glucose 111 mg/dl (74-100); Magnesium 1.8 mg/dl (1.6-2.3); Potassium 3.7 mmoL/L (3.5-5.1); Sodium 140 mmol/L (136-145); Total Protein,Serum 8.5 g/dl (6.3-8.2)
[2023-09-06 15:22] LABS: Microscopic, Urine URINE MICROSCOPIC (MICROSCOPIC)
[2023-09-06 15:25] LABS: NT Pro Brain Natriuretic Pep. 461 pg/mL (0-125)
[2023-09-06 15:30] VITALS: BP 132/90; PULSE 81; RESP 20; O2SAT 99
[2023-09-06 15:39] LABS: Troponin I < 0.01 ng/ml (0.00-0.034)
[2023-09-06 15:44] LABS: Thyroid Stimulating Hormone 4.02 uIU/mL (0.465-4.68)
[2023-09-06 15:46] LABS: Appearance,Urine CLEAR (Clear); Bilirubin,Urine Negative (Negative); Blood, Urine 1+ (Negative); Color,Urine YELLOW (Yellow); Glucose,Urine (UA) Negative (Negative); Ketones,Urine Negative (Negative); Leukocyte Esterase,Urine Negative (Negative); Nitrate,Urine Negative (Negative); Protein,Urine Negative (Negative); Specific Gravity, Urine >= 1.030 (1.005-1.030); Urobilinogen,Urine 0.2 EU/dl (0.2)
[2023-09-06 16:09] LABS: RBC,Urine Occasional #/hpf (0-3)
[2023-09-06] MEDS: FUROSEMIDE 40MG/4ML VIAL 40 MG IV (16:13)
[2023-09-06 16:18] LABS: Alanine Aminotransferase 45 U/L (12-78); Aspartate Amino Transferase 55 U/L (14-36)
[2023-09-06 16:45] VITALS: BP 134/77; PULSE 103; RESP 15; TEMP 36.6; O2SAT 99
== END 2023-09-06 16:47 | disposition home or self-care (01) ==
PROVIDERS: Physician Assistant; Emergency Provider Emergency Medicine; PCP Internal Medicine Adolescent Medicine
DX: R60.9 Edema, unspecified (principal); I10 Essential (primary) hypertension; G47.33 Obstructive sleep apnea (adult) (pediatric); I48.20 Chronic atrial fibrillation, unspecified; J44.9 Chronic obstructive pulmonary disease, unspecified; Z86.73 Personal history of transient ischemic attack (TIA), and cerebral infarction without residual deficits; Z87.891 Personal history of nicotine dependence
CPT/HCPCS: 71045; 80053; 81001; 83735; 83880; 84443; 84484; 85025; 85610; 93005; 96374; 99285

== ENCOUNTER 2023-10-09 18:33 | Emergency (ER) | payer MEDICARE, OTHER, SELFPAY ==
[2023-10-09 18:34] VITALS: BP 149/86; PULSE 108; RESP 20; TEMP 37.1; O2SAT 98; BMI 40.6
--- NOTE | 2023-10-09 18:50 | ED_ITS ---
Discharge Plan Disposition Patient Disposition: Home, Self-Care Chief Complaint: Epistaxis Prescriptions Prescriptions: No Action metoprolol succinate 50 mg tablet extended release 24 hr 50 mg PO BID Eliquis 5 mg tablet 5 mg PO BID diltiazem HCl 120 mg capsule,extended release 24 hr 120 mg PO DAILY Qty: 30 5RF furosemide [Lasix] 20 mg tablet 20 mg PO DAILY Qty: 30 5RF Referrals Follow up/Referrals: Wally Antunez MD [Primary Care Provider] - See instructions Activity Restrictions/Add. Instructions Additional Instructions/Restrictions: If no starts bleeding, blood clots, Afrin on both sides of the nose, blow your nose for 20 minutes. If it recurs, do the same thing, but blow your nose for 30 minutes. Clinical Impressions Clinical Impression: Acute anterior epistaxis Instructions Patient Instructions: DI for Nosebleed Discharge ED Provider: Chas Win General Adult HPI General Chief complaint: Epistaxis Stated complaint: nosebleed Time Seen by Provider: 10/09/23 18:40 Mode of Arrival: Ambulatory Source of Information: Patient Limitations: No Limitations Description of Symptoms (Recalled from ER Triage Doc. by RN): nosebleed that has stopped History of Present Illness HPI narrative: 68-year-old female with history of A-fib on Eliquis present with epistaxis. She was sitting at dinner when it started, no trauma to the area. Started spontaneously. Came to the emergency department for further evaluation. Hemostatic on arrival. No other symptoms. Please note that above description of symptoms, in this electronic medical record under categorization of recalled from ER triage doctor by RN are reflective of an initial nursing assessment, however, is not reflective of my full history and physical exam that was personally taken and clarified. Consequentially, this preceding description of symptoms, which may include the patient's categorized chief complaint in the EMR, do not reflect my personal clinical impression, and the ultimate description of history of present illness and patient stated complaints should be deferred to this section of the note. Unless stated otherwise or congruent with this section of the note, additional signs, symptoms, or incongruence should be interpreted as inaccurate with my clinical impression. Related Data Home Medications Medication Instructions Recorded Confirmed apixaban 5 mg tablet (Eliquis) 5 mg PO BID Blood thinner 07/05/18 09/06/23 metoprolol succinate 50 mg 50 mg PO BID 09/06/23 09/06/23 tablet,extended release 24 hr Previous Rx's Medication Instructions Recorded diltiazem HCl 120 mg capsule,24 120 mg PO DAILY #30 caps 09/14/23 hr,extended release furosemide 20 mg tablet (Lasix) 20 mg PO DAILY #30 tabs 09/14/23 Allergies Allergy/AdvReac Type Severity Reaction Status Date / Time No Known Drug Allergies Allergy Unknown -- Verified 09/14/23 14:28 [facility] Disclaimer: The information contained in this section may have been updated after the patient was seen, as this information can be updated by other users. Medical History Restless sleeper Abnormal electrocardiography HANNAH (obstructive sleep apnea) Fatigue SOB (shortness of breath) Chronic a-fib Surgical History History of hysterectomy History of hip replacement Family History Father Heart attack Social History Smoking Status: Never smoker alcohol intake: never substance use type: denies use current occupational status: employed Travel in the last 8 weeks: Inside the [place] household members: none housing: house current occupational exposures/hazards: Yes caffeine: Yes ROS Obtained: Yes All systems reviewed & no additional complaints except as documented Physical Exam General General appearance: alert and in no apparent distress Head Head exam: atraumatic and normocephalic Eye Eye exam: Present normal appearance, PERRL and EOMI ENT ENT exam: Present mucous membranes moist and other (Clot on left anterior septum. No blood in the posterior oropharynx) Neck Neck exam: Present normal inspection, full ROM and trachea midline Respiratory Respiratory exam: Absent respiratory distress, wheezes, stridor, accessory muscle use or prolonged expiratory phase Cardiovascular Cardiovascular exam: Present normal rhythm Abdominal Exam Abdominal exam: Present soft; Absent distention, tenderness, guarding, rebound or rigidity Extremities Exam Extremities exam: Absent edema Neurological Exam Neurological exam: Present alert, oriented X3, CN II-XII intact and normal gait; Absent motor sensory deficit Skin Skin exam: Present warm and dry; Absent diaphoresis or erythema Medical Decision Making Medical Records Medical records reviewed: Yes I reviewed the patient's medical records. Ricki Inquiry Pt receiving controlled substance: No Ricki was queried for this patient: No Vital Signs: 10/09/23 18:34 Temperature 98.7 F Temperature Source Oral Pulse Rate [Right] 108 H Respiratory Rate 20 Blood Pressure [Right Arm] 149/86 H Blood Pressure Mean [Right Arm] 107 02 Sat by Pulse Oximetry 98 Oxygen Delivery Method Room Air Medical Decision Narrative: 68-year-old female with history of A-fib on Eliquis present with epistaxis. She was sitting at dinner when it started, no trauma to the area. Started spontaneously. Came to the emergency department for further evaluation. Hemostatic on arrival. No other symptoms. On arrival, patient hemodynamically stable, alert, oriented, appropriate, mildly tachycardic. Patient hemostatic. Small clot on left anterior septum, no blood in the posterior oropharynx. Conversation was had with patient regarding home management, she is agreeable to this. Nose clamp was provided. Because patient at baseline without signs or symptoms of clinical decompensation, deemed appropriate for discharge. Results were relayed to patient who voiced understanding and were agreeable to outpatient management and follow up. I discussed my clinical impression with patient and answered all questions. At this time, the evidence for any other entities in the differential is insufficient to warrant any further testing or ED observation. This was explained as well. Advisory was given that persistent or worsening symptoms require further evaluation. I confirmed the understanding of this discussion. Critical Care Critical Care Time Critical Care Time: No
[2023-10-09 18:55] VITALS: BP 149/86; PULSE 101; RESP 20; TEMP 37.1; O2SAT 98
== END 2023-10-09 18:58 | disposition home or self-care (01) ==
PROVIDERS: Emergency Provider Emergency Medicine; PCP Internal Medicine Adolescent Medicine
DX: R04.0 Epistaxis (principal); I48.0 Paroxysmal atrial fibrillation; Z79.01 Long term (current) use of anticoagulants
CPT/HCPCS: 99283

== ENCOUNTER 2023-11-03 12:59 | Outpatient (CLI) | payer MEDICARE, OTHER, SELFPAY ==
--- NOTE | 2023-11-03 13:00 | CA_ITS ---
APPROVED REPORT EXAM: Comprehensive 2D, Doppler, and color-flow Echocardiogram Personnel Research Psychologist: Chantell Drake CRT Ht: 5 ft 8 in Wt: 271lbs BSA: 2.33 BP: 154/105 mmHg Indications: Shortness of Breath, Atrial Fibrillation (chronic), Hypertension/HDD 2D Dimensions LA Volume 45.40 mL LA Volume Index 19.10 mL/m2 (M/F) 16-34 M-Mode Dimensions RVDd 2.96 cm (0.9-2.6) LA Diam 4.35 cm (1.9-4.0) LVDd 4.77 cm (3.5-5.7) LVDs 2.96 cm (3.5-5.7) IVSd 1.36 cm (0.6-1.1) PWd 0.76 cm (0.6-1.1) EF (Teich) 68.00% FS 37.90% EDV (Teich) 106.00 mL TAPSE 2.22 (<1.7) ESV (Teich) 33.90 mL LV Diastology LAT A' 4.10 cm/s Aortic Valve AO Peak GR. 11.90 mmHg Pulmonary Valve PV Peak Velocity 126.0 (50-150 cm/s) Tricuspid Valve TR P. Velocity 336.00 cm/s RAP Estimate 10.00 mmHg RVSP 55.10 mmHg Left Ventricle The left ventricle is normal size. The left ventricular systolic function is normal. The left ventricular ejection fraction is within the normal range. There is normal left ventricular wall thickness. There is normal LV segmental wall motion. The left ventricular diastolic function is normal. LVEF is 55%. Right Ventricle The right ventricle is normal size. The right ventricular systolic function is normal. Atria The left atrium size is normal. Right atrium is mildly dilated. There is no Doppler evidence of interatrial shunt. Aortic Valve The aortic valve is mildly thickened. There is no aortic valvular stenosis. No aortic regurgitation is present. Mitral Valve The mitral valve leaflets are mildly thickened. No evidence of mitral valve stenosis. Trace mitral regurgitation. Tricuspid Valve The tricuspid valve leaflets are thin and pliable. Moderate risk regurgitation. RVSP 25-30 mmHg. Pulmonic Valve The pulmonary valve is normal in structure. Trace pulmonic regurgitation. Great Vessels The aortic root is normal in size. The ascending aorta is not well-visualized. IVC is normal in size and collapses >50% with inspiration. Pericardium There is no pericardial effusion. Other Information Study Quality: Fair Conclusion Normal biventricular systolic function. Mild RA dilation. Mild TR. Electronically signed by : Mickie Vazquez MD 11/05/2023 22:20:49
== END 2023-11-03 23:59 | disposition home or self-care (01) ==
PROVIDERS: PCP Internal Medicine Adolescent Medicine; Visit Provider Internal Medicine
DX: R60.0 Localized edema (principal); R94.31 Abnormal electrocardiogram [ECG] [EKG]; G47.33 Obstructive sleep apnea (adult) (pediatric); R00.2 Palpitations; T73.3XXA Exhaustion due to excessive exertion, initial encounter; R06.02 Shortness of breath; I48.20 Chronic atrial fibrillation, unspecified
CPT/HCPCS: 93306

== ENCOUNTER 2024-02-07 09:00 | Outpatient (RCR) | payer MEDICARE, OTHER, SELFPAY ==
--- NOTE | 2024-01-18 11:02 | HMH.PTOPEV ---
PT Outpatient Evaluation Rehab PT Outpatient Evaluation Start: 01/18/24 09:58 Freq: Status: Active Protocol: Document 01/18/24 09:58 PDESEROUX (Rec: 01/18/24 11:02 PDESEROUX Desktop) E-signed By Kasi Murray, PT Outpatient Therapy Subjective History Subjective History Pt. is a 68 year old female who presents to [facility] Outpatient Physical Therapy Services in [place] for the initial evaluation this date( 01/18/24) w/ c/o subacute and constant LLE ankle/ft./leg P!, stiffness, and edema onset 3- 4 months ago that have led to worsening of her gait per pt. report. Pt. denies trauma as OSMANY. Pt. 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 Pt. reports symptoms will worsen w/ increased activity on her feet . Pt. reports having to ambulate w/ a rollator d/t increase LOB secondary to c/o P!. Pt. denies having any falls, however, states she is close to it. Pt. reports noticing an increase in limp the longer she is on her feet. 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 Pt. also c/o LBP! and RLE hip P! and soft tissue dysfunction that also seems to impair my gait. Pt. reports having some symptom relief w/ prescribed cream over the ankle. Pt. denies having any diagnostic imaging nor injection to treat current LLE ankle P!. Pt. denies having any restrictions for current complaint. Current medication list includes Meloxicam and Eliquis. PMH includes S/P RLE RUSS, A-fib., and hysterectomy. New diagnosis of cancer in past 12 No months? Chief Complaint Pain,Spasms,Stiff,Swelling, Gives out/Unstable,Weakness Symptom Type Ache,Throb,Sharp,Dull,Stabbing ,Shooting Symptoms Relieved By Rest/Positioning,Ice, Prescription Meds Symptoms Aggravated By Standing,Physical Activity, Twisting,Walking Prior Functional Limitations None Current Functional Limitations Lifting,Standing,Squatting, Recreation Activity,Walking, Stairs,Balance Symptom Description Constant but Variable,Activity Dependent Level of pain today (0-10) 2 Pain scale - at its best (0-10) 1 Pain scale - at its worst (0-10) 6 Ankle/Foot Eval Gait Observation General Gait Pattern Observation Antalgic Gait,Decrease Weight Bear (L),Decrease Stride Lngth (R) Assistive Device Ambulation Assistive Device None Palpation Tenderness left Ankle/Foot Palpation Findings Tenderness,Trigger Point Ankle/Foot Palpation Overall Comment grade 4 +TTP to post. tib. tendon, post. tib. mm., achilles tendon, PF ATF TTP negative PTF TTP negative CF TTP negative Deltoid ligament TTP positive ROM Ankle/Foot Dorsiflexion w/Knee Extended -4 Active Range Motion (degrees) Ankle/Foot Dorsiflexion w/Knee Extended -11 Passive Range (degrees) Ankle/Foot Plantar Flexion Active Range 33 of Motion (degrees) Ankle/Foot Plantar Flexion Passive Range 39 of Motion (degrees) Ankle/Foot Eversion Active Range of 19 Motion (degrees) Ankle/Foot Inversion Active Range of 10 Motion (degrees) Ankle/Foot Inversion Passive Range of 13 Motion (degrees) Ankle/Foot ROM Limitations Soft Tissue Tightness,Muscle Weakness,Muscle Tone,Pain MMT Ankle Dorsiflexion Strength Grade 4- Good- Ankle Plantarflexion Strength Grade 3+ Fair+ Foot Eversion Strength Grade 4- Good- Foot Inversion Strength Grade 3+ Fair+ Ankle Dorsiflexors Muscle Tone Severe Hypertonicity Description Special Tests Ankle Anterior Drawer Test Negative Left Ankle Posterior Drawer Test Negative Left Outpatient Therapy Assessment Impairments Problems/Impairmments Palpation Tenderness,Impaired Range of Motion,Impaired Strength,Impaired Endurance, Impaired Transfers,Impaired Gait Pattern,Impaired Walking, Impaired Standing,Impaired Lifting,Impaired Stair Climbing,Impaired Incline Stepping,Impaired Stepping on Uneven Surface,Impaired Squatting,Impaired Work Activities,Impaired Balance, Increased Edema,Subjective C/O Pain,Impaired Self Care/Self Management Prognosis Rehab Potential Good Comment w/ HEP compliancy Clinical Impression Consistent with Diagnosis Yes Consistent with gait abnormality Short Term Goals Number of Weeks 2 Decreased Palpation Tenderness Yes: grade 1-2 +TTP to TTP assessment above Decrease Subjective C/O Pain Yes: worse:10/28 Patient to be Ind w/ 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 A/PROM WFL grossly w/o difficulty Increase Strength Yes: 4+ to 5/5 LLE ankle/ft. MMT scores grossly w/o difficulty Improve Transfers Yes: sit to stand to step w/o P! Improve Gait Pattern without Assistive Yes Device Increase Ability to Walk Yes Increase Ability to Stand Yes Improve Ability to Climb Stairs Yes Improve Ability to Step on Uneven Yes Surfaces Improve Tolerance to Work Activities Yes Improve LEFI Score Yes Decrease Edema Yes Decrease Subjective C/O Pain Yes: worse:1-2/10 Improve Self Care/Self Management Yes: pt. denies any falls Patient to be Ind w/ Advanced HEP Yes Outpatient Therapy Plan of Care Treatment Plan May Include Therapeutic Exercise Including Home Yes Exercise Program Manual Therapy Techniques Yes Neuromuscular Re-education Yes Therapeutic Activities to Return to Yes Previous Functional/Work Level Gait Training Yes ADL/Self Care Education Yes Thermal Modalities Yes Electrical Stimulation Yes Ultrasound/Phonophoresis Yes Iontophoresis Yes Vasopneumatic Compression Pump Yes Massage Yes Eval/Re-Eval Yes Frequency Times per week 2 Duration Number of Weeks 4-6 Addendums This patient is a candidate for social No or vocational rehab? Patient/Guardian verbally acknowledges Yes understanding of treatment program and consents to further treatment? Patient/Guardian verbally acknowledges Yes understanding of diagnosis, prognosis and goals for treatment? Eval Complexity PT Charges 78418 - Moderate Complexity Shoulder/Elbow Eval Shoulder Objective Measurements Elbow Objective Measurements PHYSICIAN CERTIFICATION: I certify the specified therapy services for Lillian Muhammad are required, authorized, and reviewed every 30 days.
== END 2024-03-21 11:21 | disposition home or self-care (01) ==
LOC: PT 09:00
PROVIDERS: Visit Provider Nurse Practitioner Family
DX: R26.9 Unspecified abnormalities of gait and mobility (principal)
CPT/HCPCS: 97033; 97035; 97110; 97140; 97163; 97530

== ENCOUNTER 2024-05-02 09:09 | Outpatient (CLI) | payer MEDICARE, OTHER, SELFPAY ==
[2024-05-02 09:39] LABS: Basophils # 0.1 K/mm3 (0-0.2); Basophils % 0.7 % (0.1-2.0); Eosinophils # 0.2 K/mm3 (0.0-0.4); Eosinophils % 2.5 % (0.1-12.0); Hemoglobin 15.5 g/dL (12.2-16.2); Lymphocytes # 1.9 K/mm3 (0.7-4.5); Lymphocytes % 26.7 % (10-50); Mean Corpuscular HGB Conc 33.1 g/dL (31.8-35.4); Mean Corpuscular Hemoglobin 31.3 pg (27.0-31.2); Mean Corpuscular Volume 94.7 fl (81-99); Mean Platelet Volume 8.1 fl (7.4-10.4); Monocytes # 0.5 K/mm3 (0.1-1.0); Monocytes % 6.5 % (1.7-9.3); Neutrophils # 4.5 K/mm3 (1.8-7.8); Neutrophils % 63.7 % (37.0-80.0); Platelet Count 202 K/mm3 (142-424); Red Blood Count 4.96 M/mm3 (4.20-5.40); Red Cell Distribution Width 14.7 % (11.5-17.5)
[2024-05-02 09:46] LABS: Alanine Aminotransferase 41 U/L (12-78); Albumin Level 4.2 g/dl (3.5-5.0); Albumin/Globulin Ratio 1.3 (1.1-1.8); Alkaline Phosphatase 46 U/L (38-126); Anion Gap 11.9 mEq/L (5-15); Aspartate Amino Transferase 54 U/L (14-36); Bilirubin,Total 0.9 mg/dl (0.2-1.3); Blood Urea Nitrogen 15 mg/dl (7-17); Calcium 8.5 mg/dl (8.4-10.2); Carbon Dioxide 25 mmol/L (22.0-30.0); Chloride 106 mmol/L (98-107); Chol/HDL Ratio 4.4 (1-3.5); Cholesterol 154 mg/dl (140-200); Estimated Glomerular Filt Rate 122 ml/min (>60); GFR (African American) 148 ML/MIN (>60); Globulin 3.3 g/dL (1.3-3.2); Glucose 121 mg/dl (74-100); HDL Cholesterol 35 mg/dl (40-60); Potassium 3.9 mmoL/L (3.5-5.1); Sodium 139 mmol/L (136-145); Total Protein,Serum 7.5 g/dl (6.3-8.2); Triglycerides 167 mg/dl (30-150); Uric Acid 6.8 mg/dl (2.5-6.2); VLDL Cholesterol 33 mg/dL (0-40)
[2024-05-02 09:57] LABS: Direct LDL Cholesterol 94.49 mg/dL (100-129)
[2024-05-02 10:11] LABS: Hemoglobin A1C 6.2 % (4.0-6.0)
[2024-05-02 10:16] LABS: Thyroid Stimulating Hormone 5.43 uIU/mL (0.465-4.68)
== END 2024-05-02 23:59 | disposition home or self-care (01) ==
LOC: LAB 09:10
PROVIDERS: PCP Internal Medicine Adolescent Medicine; Visit Provider Nurse Practitioner Family
DX: E78.2 Mixed hyperlipidemia (principal); R73.9 Hyperglycemia, unspecified; E03.9 Hypothyroidism, unspecified; M25.572 Pain in left ankle and joints of left foot
CPT/HCPCS: 36415; 80053; 80061; 83036; 84443; 84550; 85025

== ENCOUNTER 2024-06-15 08:00 | Outpatient (RCR) | payer MEDICARE, OTHER, SELFPAY ==
--- NOTE | 2024-05-03 10:30 | HMH.PTOPEV ---
PT Outpatient Evaluation Rehab PT Outpatient Evaluation Start: 05/03/24 08:58 Freq: Status: Active Protocol: Document 05/03/24 08:58 ROSARIO (Rec: 05/03/24 10:30 [email or web address] [id number]) E-signed By Kasi Murray, PT Outpatient Therapy Subjective History Subjective History Pt. is a 68 year old Female who presents to [facility] Outpatient Physical Therapy Services in [place] for the initial evaluation this date(05/03/24) w/ c/o chronic and intermittent RLE hip P!, burning and stinging, and limp of insidious onset 8 months ago that has progressively been getting worse. Pt. reports, I walk so bad. Pt. c/o RLE hip and gait deficits since her S/P RLE RUSS 10 years ago. Pt. 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 Pt. reports having to sit down or ambulate w/ her rollator to assist. Pt. denies having any falls, however, pt. reports having to grab onto furniture or michelle to assist w / stability when she walks. Pt . reports having previous orders for Physical Therapy for gait abnormalities earlier this year, however, pt. states she was unable to progress her treatment secondary to tendinitis in her LLE ankle. Pt. denies having any current imaging nor injections for current complaint of RLE hip P!. Pt. denies having any shooting P! into the RLE ankle/ft., however, pt. c/o her toes and foot going numb intermittently in BLE. Current medication list includes Meloxicam and Eliquis. PMH includes S/P RLE RUSS, A-fib., and hysterectomy. New diagnosis of cancer in past 12 No months? Chief Complaint Pain,Spasms,Stiff,Gives out/ Unstable,Paresthesia,Weakness Symptom Type Ache,Sharp,Stabbing,Burning, Numbness,Tingling Symptoms Relieved By Rest/Positioning,Ice,OTC Meds Symptoms Aggravated By Standing,Bending/Stooping, Physical Activity,Walking, Lifting Prior Functional Limitations None Current Functional Limitations Lifting,Housework,Standing, Squatting,Recreation Activity, Walking,Stairs,Bending/ Stooping Symptom Description Activity Dependent Level of pain today (0-10) 0 Pain scale - at its best (0-10) 0 Pain scale - at its worst (0-10) 8 Hip/Knee Eval Gait Observation General Gait Pattern Observation Antalgic Gait,Decrease Weight Bear (R),Decrease Stride Lngth (L) Assistive Device Assistive Devices None / NA Palpation Tenderness right Knee Palpation Overall Comment grade 4 +TTP to rectus femoris /iliacus/TFL/piriformis/glute med. Hip Palpation Findings Tenderness,Trigger Point MMT Hip Flexion Strength Grade 3 Fair Hip Abduction Strength Grade 3+ Fair+ Hip Adduction Strength Grade 3+ Fair+ Hip Extension Strength Grade 4- Good- Gluteus Sterling Strength Grade 4- Good- Hip External Rotation Strength Grade 3 Fair Hip Internal Rotation Strength Grade 3 Fair Knee Extension Strength Grade 4- Good- Knee Flexion Strength Grade 4- Good- Hip Extensors Muscle Tone Description Severe Hypertonicity Hip Flexors Muscle Tone Description Severe Hypertonicity ROM Hip Flexion w/Knee Extended Active Range 45 of Motion (degrees) Hip Flexion w/Knee Extended Passive 71 Range of Motion (degrees) Hip Abduction Active Range of Motion ( 17 degrees) Hip Abduction Passive Range of Motion ( 21 degrees) Hip Extension Active Range of Motion ( 15 degrees) Hip Extension Passive Range of Motion ( 19 degrees) Hip External Rotation Active Range of 13 Motion (degrees) Hip External Rotation Passive Range of 15 Motion (degrees) Hip Internal Rotation Active Range of 11 Motion (degrees) Hip Internal Rotation Passive Range of 13 Motion (degrees) Hip ROM Limitations Soft Tissue Tightness,Pain, Muscle Weakness,Muscle Tone, Contractures,Tightness on Right DTR bilateral Rt Patellar 1+ Lt Patellar 1+ Sensation right LE Dermatome Level L1 Comment vocalized asymmetrical light touch sensation of RLE compared to LLE Special Tests Hip Crissy's Test Positive Right Hip Edison Test Positive Right Hip Piriformis Test Positive Right Sciatic Nerve Tension Test Negative Right Mike Test Positive Hip Trendelenburg Test Positive Right Outpatient Therapy Assessment Impairments Problems/Impairmments Palpation Tenderness,Impaired Range of Motion,Impaired Strength,Impaired Endurance, Impaired Transfers,Impaired Gait Pattern,Impaired Walking, Impaired Standing,Impaired Household Care,Impaired Stair Climbing,Impaired Incline Stepping,Impaired Stepping on Uneven Surface,Impaired Work Activities,Subjective C/O Pain ,Impaired Self Care/Self Management Prognosis Rehab Potential Good Comment w/ HEP compliancy Clinical Impression Consistent with Diagnosis Yes Consistent with gait abnormalities, RLE hip P! 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 Improve LEFI Score Yes Decrease Subjective C/O Pain Yes: worse:-08/28 Patient to be Ind w/ Advanced HEP Yes Outpatient Therapy Plan of Care Treatment Plan May Include Therapeutic Exercise Including Home Yes Exercise Program Manual Therapy Techniques Yes: soft tissue mobilization techniques Neuromuscular Re-education Yes Therapeutic Activities to Return to Yes Previous Functional/Work Level Gait Training Yes ADL/Self Care Education Yes Thermal Modalities Yes Electrical Stimulation Yes Ultrasound/Phonophoresis Yes Iontophoresis Yes Vasopneumatic Compression Pump Yes Massage Yes Eval/Re-Eval Yes Frequency Times per week 2 Duration Number of Weeks 4-6 Addendums This patient is a candidate for social No or vocational rehab? Patient/Guardian verbally acknowledges Yes understanding of treatment program and consents to further treatment? Patient/Guardian verbally acknowledges Yes understanding of diagnosis, prognosis and goals for treatment? Eval Complexity PT Charges 96305 - Low Complexity Shoulder/Elbow Eval Shoulder Objective Measurements Elbow Objective Measurements PHYSICIAN CERTIFICATION: I certify the specified therapy services for Lillian Muhammad are required, authorized, and reviewed every 30 days.
== END 2024-06-15 23:59 | disposition home or self-care (01) ==
LOC: PT 08:00
PROVIDERS: Visit Provider Nurse Practitioner Family
DX: M25.551 Pain in right hip (principal); R26.9 Unspecified abnormalities of gait and mobility
CPT/HCPCS: 97110; 97140; 97163; 97530

== ENCOUNTER 2024-06-29 07:57 | Outpatient (RCR) | payer MEDICARE, OTHER, SELFPAY | END 2024-07-03 08:27 | disposition home or self-care (01) | LOC: PT 07:57 | PROVIDERS: Visit Provider Nurse Practitioner Family | DX: M25.551 Pain in right hip (principal); R26.9 Unspecified abnormalities of gait and mobility | CPT/HCPCS: 97110 ==

== ENCOUNTER 2024-11-18 20:58 | Emergency (ER) | payer MEDICARE, OTHER, SELFPAY ==
[2024-11-18 21:09] VITALS: BP 183/112; PULSE 91; RESP 16; TEMP 36.6; O2SAT 96; BMI 42.4
--- NOTE | 2024-11-18 21:16 | PC.NURSE ---
Nasal clamp placed 2116
[2024-11-18 21:32] VITALS: BP 161/87; PULSE 104; O2SAT 96
[2024-11-18 22:06] VITALS: BP 168/94; PULSE 73; O2SAT 98
[2024-11-18 22:07] VITALS: BP 116/77; PULSE 70; O2SAT 97
--- NOTE | 2024-11-18 22:08 | PC.NURSE ---
nose no longer bleeding; would like to go home
--- NOTE | 2024-11-18 22:30 | ED_ITS ---
Discharge Plan Disposition Patient Disposition: Home, Self-Care Prescriptions Prescriptions: No Action metoprolol succinate 50 mg tablet extended release 24 hr 50 mg PO BID Eliquis 5 mg tablet 5 mg PO BID Referrals Follow up/Referrals: Wally Antunez MD [Primary Care Provider, Internal Medicine] - See instructions Clinical Impressions Clinical Impression: Acute anterior epistaxis Instructions Patient Instructions: DI for Nosebleed Print Language Print Language: Ukrainian Discharge ED Provider: Em Hernandez General Adult HPI General Chief complaint: Epistaxis Stated complaint: nose bleed Time Seen by Provider: 11/18/24 22:10 Mode of Arrival: Ambulatory Source of Information: Patient Description of Symptoms (Recalled from ER Triage Doc. by RN): Nosebleed since 830pm; on eilquis History of Present Illness HPI narrative: Patient is a 69-year-old on Eliquis for atrial fibrillation presenting today with left anterior epistaxis this has happened in the past she has had improvement in the past with compression but did not have any improvement at home prior to arrival. She had a nasal clamp on prior to my evaluation. Related Data Home Medications ?Medication ?Instructions ?Recorded ?Confirmed apixaban 5 mg tablet (Eliquis) 5 mg PO BID Blood thinn er 07/05/18 11/25/23 Held on 11/25/23. Instructions: Resume on 11/28/23. Hold due to removal of large polyp metoprolol succinate 50 mg 50 mg PO BID 09/06/2311/24 tablet,extended release 24 hr Allergies Allergy/AdvReac Type Severity Reaction Status Date / Time No Known Drug Allergies Allergy Unknown -- Verified 11/24/23 11:18 [facility] Disclaimer: The information contained in this section may have been updated after the patient was seen, as this information can be updated by other users. Medical History Restless sleeper Abnormal electrocardiography HANNAH (obstructive sleep apnea) Fatigue SOB (shortness of breath) Chronic a-fib Surgical History History of hysterectomy History of hip replacement Family History Father Heart attack Social History Smoking Status: Never smoker alcohol intake: never substance use type: denies use current occupational status: employed Travel in the last 8 weeks?: Inside the [place] household members: none housing: house current occupational exposures/hazards: Yes caffeine: Yes Have you lived/traveled outside [place] in past 30 days?: No Contact w/someone who lives/traveled outside [place] past 30 days?: No Exposure to someone with infectious disease in past 14 days?: No Do you have a fever (greater than 100.4 F or 38 C)?: No Have you tested positive for COVID-19?: No Exposed to someone with COVID-19 in past 14 days?: No Do you have a sore throat?: No Do you have a cough?: No Do you have any weakness?: No Do you have any diarrhea?: No Are you experiencing any unusual bleeding?: No Do you have any muscle aches/pain?: No Do you have any abdominal pain?: No Are you experiencing loss of taste or smell?: No Other Medical History Have you received the Flu Vaccine for this season: Yes Have you received the Pneumonia Vaccine: Yes ROS Obtained: Yes All systems reviewed & no additional complaints except as documented Physical Exam General General appearance: alert and in no apparent distress ENT ENT exam: Present other (Left anterior recent epistaxis noted in the mucosal septum which was hemostatic on my initial evaluation) Respiratory Respiratory exam: Present normal lung sounds bilaterally Cardiovascular Cardiovascular exam: Present regular rate Neurological Exam Neurological exam: Present alert and oriented X3 Medical Decision Making Medical Records Screening: Per USPSTF and CDC recommendations, given the prevalence of disease in our region, it is our hospital?s policy to screen for HIV and viral Hepatitis for all patients aged 18 and over and those with ongoing risk factors. Ricki Inquiry Pt receiving controlled substance: No Vital Signs: 11/18/24 21:09 11/18/24 21:32 11/18/24 22:06 Temperature 97.9 F Temperature Source Temporal Artery Scan Pulse Rate 104 H 73 Pulse Rate [Right Radial] 91 H Respiratory Rate 16 Blood Pressure 161/87 H 168/94 H Blood Pressure [Right Arm] 183/112 H Blood Pressure Mean [Right Arm] 135 Blood Pressure Source [Right Arm] Automatic Cuff Blood Pressure Position [Right Arm] Sitting 02 Sat by Pulse Oximetry 96 96 98 Oxygen Delivery Method Room Air 05/31/25 22:07 Temperature Temperature Source Pulse Rate 70 Pulse Rate [Right Radial] Respiratory Rate Blood Pressure 116/77 Blood Pressure [Right Arm] Blood Pressure Mean [Right Arm] Blood Pressure Source [Right Arm] Blood Pressure Position [Right Arm] 02 Sat by Pulse Oximetry 97 Oxygen Delivery Method Medical Decision Narrative: Patient with above history and physical was initially hemostatic I offered her no intervention versus nasal packing versus electrocautery. With shared decision making we chose to use silver nitrate cautery actually. And this did disrupt some of the clot that was formed but largely the areas that were bleeding were cauterized nasal clamp was placed back on this and we will reassess this in 20 minutes. If she continues to bleed we will likely have to pack her. Reassessment 1057 patient is hemostatic she has been advised to use Afrin and her nasal clamp at home if this returns. Patient was discharged in improved stable condition. Critical Care Critical Care Time Critical Care Time: No
[2024-11-18 23:00] VITALS: BP 148/96; PULSE 80; RESP 16; TEMP 36.6; O2SAT 98
== END 2024-11-18 23:02 | disposition home or self-care (01) ==
PROVIDERS: Emergency Provider Student in an Organized Health Care Education/Training Program; PCP Internal Medicine Adolescent Medicine
DX: R04.0 Epistaxis (principal); I48.20 Chronic atrial fibrillation, unspecified; Z79.01 Long term (current) use of anticoagulants
CPT/HCPCS: 99282; 99283